=== PATIENT | male | born 1950 | race Caucasian/White ===

== ENCOUNTER 2019-10-24 08:10 | Outpatient (CLI) | payer BC, SELFPAY ==
[2019-10-24 13:54] LABS: Hematocrit 46.5 % (42.0-52.0); Hemoglobin 15.2 g/dL (14.0-18.0)
[2019-10-24 14:26] LABS: Iron 153 ug/dL (49-181)
[2019-10-24 14:39] LABS: Percent Iron Saturation 48 % (20-50)
[2019-10-26 04:41] LABS: Adrenocorticotropic Hormone 13 pg/mL (6-50)
[2019-10-26 12:48] LABS: FSH 6.6 mIU/mL (1.6-8.0); LH 4.5 mIU/mL (1.6-15.2)
[2019-10-27 13:01] LABS: Testosterone Free 32.2 pg/mL (35.0-155.0); Testosterone Total 204 ng/dL (250-1100)
== END 2019-10-24 08:11 | disposition home or self-care (01) ==
LOC: ANHWCLAB 08:15
PROVIDERS: PCP Family Medicine Adolescent Medicine; Referring Provider Internal Medicine Endocrinology, Diabetes & Metabolism; Visit Provider Internal Medicine Endocrinology, Diabetes & Metabolism
DX: E29.1 Testicular hypofunction (principal)
CPT/HCPCS: 36415; 82024; 82533; 82728; 83001; 83002; 83540; 83550; 84402; 84403; 84443; 85014; 85018

== ENCOUNTER → 2019-11-14 15:15 | Outpatient (REF) | payer BC, SELFPAY | LOC: ANHLAB 15:15 | PROVIDERS: PCP Family Medicine; Visit Provider Nurse Practitioner Family | DX: L72.0 Epidermal cyst (principal) | CPT/HCPCS: 88304 ==

== ENCOUNTER 2019-12-10 08:22 | Outpatient (CLI) | payer BC, SELFPAY ==
[2019-12-10 13:22] LABS: Hematocrit 50.4 % (42.0-52.0); Hemoglobin 16.1 g/dL (14.0-18.0)
[2019-12-10 13:32] LABS: Alanine Aminotransferase 38 U/L (4-50); Albumin Level 4.9 g/dL (3.5-5.1); Alkaline Phosphatase 86 U/L (38-126); Aspartate Amino Transferase 35 U/L (17-59); Bilirubin,Total 0.5 mg/dL (0.2-1.3); Blood Urea Nitrogen 25 mg/dL (9-20); Calcium 9.5 mg/dL (8.4-10.2); Carbon Dioxide 23 mmol/L (22-30); Chloride 104 mmol/L (98-107); Estimated Glomerular Filt Rate > 60; Glucose 87 mg/dL (75-110); Potassium 3.9 mmol/L (3.4-5.0); Sodium 141 mmol/L (137-145)
[2019-12-10 14:02] LABS: Prostate Specific Antigen 3.1 ng/mL (< OR = 4.0)
[2019-12-14 11:45] LABS: Testosterone Free 45.6 pg/mL (35.0-155.0); Testosterone Total 268 ng/dL (250-1100)
== END 2019-12-10 08:23 | disposition home or self-care (01) ==
LOC: ANHWCLAB 08:25
PROVIDERS: PCP Family Medicine; Visit Provider Internal Medicine Endocrinology, Diabetes & Metabolism
DX: E83.19 Other disorders of iron metabolism (principal); E29.1 Testicular hypofunction
CPT/HCPCS: 36415; 80053; 84153; 84402; 84403; 85014; 85018; G0103

== ENCOUNTER 2019-12-28 09:47 | Outpatient (CLI) | payer BC, SELFPAY ==
[2019-12-28 10:08] LABS: Basophils Absolute Auto 0.1 K/mm3 (0.0-0.1); Basophils Percent Auto 0.8 % (0.2-1.2); Eosinophils Absolute Auto 0.5 K/mm3 (0-0.3); Hematocrit 48.3 % (42.0-52.0); Hemoglobin 15.5 g/dL (14.0-18.0); Immature Granulocyte Absolute 0.02 K/mm3 (0.00-0.031); Immature Granulocyte Percent A 0.3 % (0-0.5); Lymphocytes Absolute Auto 1.64 K/mm3 (0.9-3.2); Lymphocytes Percent Auto 21.6 % (18.3-44.2); Mean Corpuscular HGB Conc 32.1 g/dl (32-36); Mean Corpuscular Hemoglobin 33.2 pg (26-34); Mean Corpuscular Volume 103.4 fl (80-100); Mean Platelet Volume 10.5 fl (7.4-10.4); Monocytes Absolute Auto 0.9 K/mm3 (0.1-0.6); Monocytes Percent Auto 11.7 % (2.6-8.5); Neutrophils Absolute Auto 4.5 K/mm3 (1.3-6.7); Neutrophils Percent Auto 58.6 % (45.5-73.1); Platelet Count Result 182 k/mm3 (150-375); Red Blood Count 4.67 M/mm3 (4.6-6.20); Red Cell Distribution Width 11.9 % (11.5-14.5); White Blood Count 7.6 K/mm3 (4.5-10.0)
[2019-12-28 13:07] LABS: Alanine Aminotransferase 26 U/L (4-50); Albumin Level 4.4 g/dL (3.5-5.1); Alkaline Phosphatase 84 U/L (38-126); Aspartate Amino Transferase 33 U/L (17-59); Bilirubin,Total 0.5 mg/dL (0.2-1.3); Blood Urea Nitrogen 19 mg/dL (9-20); Calcium 9.6 mg/dL (8.4-10.2); Carbon Dioxide 25 mmol/L (22-30); Chloride 105 mmol/L (98-107); Estimated Glomerular Filt Rate > 60; Glucose 98 mg/dL (75-110); Potassium 4.6 mmol/L (3.4-5.0); Sodium 138 mmol/L (137-145)
[2019-12-28 16:57] LABS: Iron 55 ug/dL (49-181)
[2019-12-28 17:08] LABS: Percent Iron Saturation 17 % (20-50)
== END 2019-12-28 09:48 | disposition home or self-care (01) ==
LOC: ANHLAB 09:49
PROVIDERS: PCP Family Medicine; Visit Provider Internal Medicine Hematology & Oncology
DX: E83.19 Other disorders of iron metabolism (principal)
CPT/HCPCS: 36415; 80053; 81256; 82728; 83540; 83550; 85025

== ENCOUNTER 2021-10-07 14:56 | Outpatient (CLI) | payer BC, SELFPAY ==
[2021-10-07 15:09] LABS: Hematocrit 52.2 % (42.0-52.0); Hemoglobin 16.8 g/dL (14.0-18.0); Mean Corpuscular HGB Conc 32.2 g/dl (32-36); Mean Corpuscular Hemoglobin 32.7 pg (26-34); Mean Corpuscular Volume 101.6 fl (80-100); Mean Platelet Volume 10.6 fl (7.4-10.4); Platelet Count Result 181 k/mm3 (150-375); Red Blood Count 5.14 M/mm3 (4.6-6.20); Red Cell Distribution Width 12.4 % (11.5-14.5); White Blood Count 6.7 K/mm3 (4.5-10.0)
[2021-10-07 16:09] LABS: Iron 74 ug/dL (49-181)
[2021-10-07 16:19] LABS: Percent Iron Saturation 23 % (20-50)
== END 2021-10-07 14:57 | disposition home or self-care (01) ==
PROVIDERS: PCP Family Medicine; Visit Provider Internal Medicine Hematology & Oncology
DX: E83.19 Other disorders of iron metabolism (principal)
CPT/HCPCS: 36415; 82728; 83540; 83550; 85027

== ENCOUNTER 2022-05-18 15:16 | Outpatient (CLI) | payer BC, SELFPAY ==
[2022-05-18 15:38] LABS: Basophils Absolute Auto 0.1 K/mm3 (0.0-0.1); Basophils Percent Auto 0.8 % (0.2-1.2); Eosinophils Absolute Auto 0.4 K/mm3 (0-0.3); Eosinophils Percent Auto 6.3 % (0-4.4); Hematocrit 55.7 % (42.0-52.0); Hemoglobin 18.3 g/dL (14.0-18.0); Immature Granulocyte Absolute 0.02 K/mm3 (0.00-0.031); Immature Granulocyte Percent A 0.3 % (0-0.5); Lymphocytes Absolute Auto 1.69 K/mm3 (0.9-3.2); Mean Corpuscular HGB Conc 32.9 g/dl (32-36); Mean Corpuscular Hemoglobin 31.9 pg (26-34); Mean Corpuscular Volume 97.2 fl (80-100); Mean Platelet Volume 10.6 fl (7.4-10.4); Monocytes Absolute Auto 0.8 K/mm3 (0.1-0.6); Monocytes Percent Auto 12.5 % (2.6-8.5); Neutrophils Absolute Auto 3.5 K/mm3 (1.3-6.7); Neutrophils Percent Auto 54.1 % (45.5-73.1); Platelet Count Result 154 k/mm3 (150-375); Red Blood Count 5.73 M/mm3 (4.6-6.20); White Blood Count 6.5 K/mm3 (4.5-10.0)
[2022-05-18 17:03] LABS: Prostate Specific Antigen 4.4 ng/mL (< OR = 4.0)
[2022-05-21 10:52] LABS: Testosterone Free 120.1 pg/mL (46.0-224.0); Testosterone Total 569 ng/dL (250-1100)
== END 2022-05-18 15:17 | disposition home or self-care (01) ==
LOC: ANHLAB 15:17
PROVIDERS: Nurse Practitioner Family; PCP Family Medicine; Referring Provider Internal Medicine Endocrinology, Diabetes & Metabolism; Visit Provider Internal Medicine Hematology & Oncology
DX: Z12.5 Encounter for screening for malignant neoplasm of prostate (principal); E29.1 Testicular hypofunction; D75.1 Secondary polycythemia; E34.9 Endocrine disorder, unspecified
CPT/HCPCS: 36415; 84153; 84402; 84403; 85025; G0103

== ENCOUNTER 2022-09-01 08:19 | Outpatient (CLI) | payer BC, SELFPAY ==
[2022-09-01 11:45] LABS: Prostate Specific Antigen 3.7 ng/mL (< OR = 4.0)
== END 2022-09-01 08:20 | disposition home or self-care (01) ==
LOC: ANHLAB 08:21
PROVIDERS: PCP Family Medicine; Visit Provider Physician Assistant Medical
DX: R97.20 Elevated prostate specific antigen [PSA] (principal)
CPT/HCPCS: 36415; 84153

== ENCOUNTER 2022-09-28 09:00 | Outpatient (NON) | payer BC, SELFPAY | END 2022-09-28 09:01 | disposition home or self-care (01) | PROVIDERS: PCP Family Medicine; Visit Provider Nurse Practitioner | DX: C44.719 Basal cell carcinoma of skin of left lower limb, including hip (principal) | CPT/HCPCS: 88305 ==

== ENCOUNTER 2022-11-08 13:11 | Outpatient (NON) | payer BC, SELFPAY | END 2022-11-08 13:12 | disposition home or self-care (01) | PROVIDERS: PCP Family Medicine; Visit Provider Nurse Practitioner | DX: C44.719 Basal cell carcinoma of skin of left lower limb, including hip (principal) | CPT/HCPCS: 88305; 88331 ==

== ENCOUNTER 2022-11-15 15:21 | Outpatient (CLI) | payer BC, SELFPAY ==
[2022-11-15 15:43] LABS: Basophils Absolute Auto 0.1 K/mm3 (0.0-0.1); Eosinophils Absolute Auto 0.4 K/mm3 (0-0.3); Eosinophils Percent Auto 6.1 % (0-4.4); Hematocrit 50.6 % (42.0-52.0); Hemoglobin 16.8 g/dL (14.0-18.0); Immature Granulocyte Absolute 0.02 K/mm3 (0.00-0.031); Immature Granulocyte Percent A 0.3 % (0-0.5); Lymphocytes Absolute Auto 1.58 K/mm3 (0.9-3.2); Lymphocytes Percent Auto 22.6 % (18.3-44.2); Mean Corpuscular HGB Conc 33.2 g/dl (32-36); Mean Corpuscular Hemoglobin 33.1 pg (26-34); Mean Corpuscular Volume 99.6 fl (80-100); Mean Platelet Volume 10.5 fl (7.4-10.4); Monocytes Absolute Auto 0.8 K/mm3 (0.1-0.6); Monocytes Percent Auto 11.1 % (2.6-8.5); Neutrophils Absolute Auto 4.1 K/mm3 (1.3-6.7); Neutrophils Percent Auto 58.9 % (45.5-73.1); Platelet Count Result 184 k/mm3 (150-375); Red Blood Count 5.08 M/mm3 (4.6-6.20); Red Cell Distribution Width 12.1 % (11.5-14.5)
[2022-11-29 12:05] LABS: Testosterone Free 32.1 pg/mL (6.0-73.0); Testosterone Total 170 ng/dL (250-1100)
== END 2022-11-15 15:22 | disposition home or self-care (01) ==
LOC: ANHLAB 15:25
PROVIDERS: Internal Medicine Endocrinology, Diabetes & Metabolism; PCP Family Medicine; Visit Provider Internal Medicine Hematology & Oncology
DX: E29.1 Testicular hypofunction (principal)
CPT/HCPCS: 36415; 84402; 84403; 85025

== ENCOUNTER 2023-03-11 08:03 | Outpatient (CLI) | payer BC, SELFPAY ==
[2023-03-11 08:21] LABS: Hematocrit 57.1 % (42.0-52.0); Hemoglobin 19.1 g/dL (14.0-18.0); Mean Corpuscular HGB Conc 33.5 g/dl (32-36); Mean Corpuscular Hemoglobin 32.9 pg (26-34); Mean Corpuscular Volume 98.4 fl (80-100); Mean Platelet Volume 10.4 fl (7.4-10.4); Platelet Count Result 173 k/mm3 (150-375); Red Cell Distribution Width 12.3 % (11.5-14.5); White Blood Count 5.8 K/mm3 (4.5-10.0)
[2023-03-11 08:53] LABS: Alanine Aminotransferase 48 U/L (6-50); Albumin Level 4.7 g/dL (3.5-5.1); Alkaline Phosphatase 63 U/L (38-126); Anion Gap 7 mmol/L (8-16); Aspartate Amino Transferase 37 U/L (17-59); Bilirubin,Total 0.9 mg/dL (0.2-1.3); Blood Urea Nitrogen 21 mg/dL (9-20); Calcium 9.5 mg/dL (8.4-10.2); Carbon Dioxide 31 mmol/L (22-30); Chloride 102 mmol/L (98-107); Estimated Glomerular Filt Rate > 60; Glucose 97 mg/dL (65-110); Potassium 4.7 mmol/L (3.4-5.0); Sodium 140 mmol/L (137-145)
[2023-03-11 11:21] LABS: Iron 175 ug/dL (49-181)
[2023-03-11 11:31] LABS: Percent Iron Saturation 45 % (20-50)
== END 2023-03-11 08:04 | disposition home or self-care (01) ==
LOC: ANHLAB 08:05
PROVIDERS: PCP Family Medicine; Visit Provider Internal Medicine Hematology & Oncology
DX: E83.19 Other disorders of iron metabolism (principal)
CPT/HCPCS: 36415; 80053; 82728; 83540; 83550; 85027

== ENCOUNTER 2023-05-23 15:14 | Outpatient (CLI) | payer BC, SELFPAY ==
[2023-05-23 15:33] LABS: Basophils Absolute Auto 0.1 K/mm3 (0.0-0.1); Eosinophils Absolute Auto 0.5 K/mm3 (0-0.3); Eosinophils Percent Auto 7.8 % (0-4.4); Hematocrit 55.1 % (42.0-52.0); Hemoglobin 17.9 g/dL (14.0-18.0); Immature Granulocyte Absolute 0.02 K/mm3 (0.00-0.031); Immature Granulocyte Percent A 0.3 % (0-0.5); Lymphocytes Absolute Auto 1.66 K/mm3 (0.9-3.2); Lymphocytes Percent Auto 26.8 % (18.3-44.2); Mean Corpuscular HGB Conc 32.5 g/dl (32-36); Mean Corpuscular Hemoglobin 32.4 pg (26-34); Mean Corpuscular Volume 99.6 fl (80-100); Mean Platelet Volume 10.8 fl (7.4-10.4); Monocytes Absolute Auto 0.7 K/mm3 (0.1-0.6); Monocytes Percent Auto 11.1 % (2.6-8.5); Neutrophils Absolute Auto 3.3 K/mm3 (1.3-6.7); Platelet Count Result 156 k/mm3 (150-375); Red Blood Count 5.53 M/mm3 (4.6-6.20); White Blood Count 6.2 K/mm3 (4.5-10.0)
[2023-05-23 16:49] LABS: Alanine Aminotransferase 50 U/L (6-50); Albumin Level 4.2 g/dL (3.5-5.1); Alkaline Phosphatase 78 U/L (38-126); Anion Gap 8 mmol/L (8-16); Aspartate Amino Transferase 36 U/L (17-59); Bilirubin,Total 0.5 mg/dL (0.2-1.3); Blood Urea Nitrogen 23 mg/dL (9-20); Calcium 9.1 mg/dL (8.4-10.2); Carbon Dioxide 30 mmol/L (22-30); Chloride 101 mmol/L (98-107); Estimated Glomerular Filt Rate > 60; Glucose 125 mg/dL (65-110); Sodium 139 mmol/L (137-145)
[2023-05-23 16:50] LABS: Iron 70 ug/dL (49-181)
[2023-05-23 16:58] LABS: Percent Iron Saturation 19 % (20-50)
== END 2023-05-23 15:15 | disposition home or self-care (01) ==
LOC: ANHLAB 15:16
PROVIDERS: PCP Family Medicine; Visit Provider Internal Medicine Hematology & Oncology
DX: E83.19 Other disorders of iron metabolism (principal)
CPT/HCPCS: 36415; 80053; 82728; 83540; 83550; 85025

== ENCOUNTER 2023-11-28 16:08 | Outpatient (CLI) | payer BC, SELFPAY ==
--- NOTE | ~2023-11-28 | XR_ITS ---
XR chest 2V DATE: 11/28/2023 16:32 INDICATION: Other specified symptoms and signs involving the chest TECHNIQUE: 2 views COMPARISON: November 01, 2015 2 view chest FINDINGS: Normal heart size. No hilar or mediastinal enlargement. No pulmonary infiltrate or consolid ation, pleural effusion or pulmonary vascular congestion or pneumothorax. Dextro scoliosis and prominent degenerative spurring of the thoracic spine. IMPRESSION: No active cardiopulmonary disease Dextro scoliosis and prominent degenerative spurring of thoracic spine Reviewed, dictated and finalized at location B.
== END 2023-11-28 16:09 ==
LOC: MICIMG 16:09
PROVIDERS: PCP Family Medicine; Visit Provider Family Medicine
DX: R09.89 Other specified symptoms and signs involving the circulatory and respiratory systems (principal); M41.9 Scoliosis, unspecified
CPT/HCPCS: 71046

== ENCOUNTER 2024-01-20 12:35 | Outpatient (CLI) | payer BC, SELFPAY ==
--- NOTE | 2024-01-23 17:04 | WPDHOLTEREM ---
Holter/Event Monitor Holter/Event Monitor Date of procedure: 01/20/24 Holter/Event Procedure: 48 Hr Holter Monitor Indications: Bradycardia Conclusion: 1. 48 hour holter monitor on 01/20/24. 2. Underlying rhythm is sinus rhythm. HR range 48-98 bpm; average 67 bpm. HR at 48 bpm was at 03:42. 3. There are 66 premature supraventricular complexes and 1 supraventricular couplet. No supraventricular tachycardia. 4. There are 10 premature ventricular complexes. No ventricular tachycardia. 5. No sinoatrial or atrioventricular blocks. No significant pauses greater than 2 seconds. 6. No symptoms available for correlation.
== END 2024-01-20 12:36 | disposition home or self-care (01) ==
LOC: ANHCARD 12:36
PROVIDERS: PCP Family Medicine; Visit Provider Family Medicine
DX: R00.1 Bradycardia, unspecified (principal)
CPT/HCPCS: 93225; 93226

== ENCOUNTER 2024-02-02 15:40 | Outpatient (CLI) | payer BC, SELFPAY ==
[2024-02-02 18:28] LABS: Prostate Specific Antigen 5.4 ng/mL (< OR = 4.0)
[2024-02-06 15:58] LABS: Testosterone Total 345 ng/dL (250-1100)
[2024-02-06 16:09] LABS: Testosterone Free 78.1 pg/mL (6.0-73.0)
== END 2024-02-02 15:41 | disposition home or self-care (01) ==
LOC: ANHLAB 15:42
PROVIDERS: PCP Family Medicine; Visit Provider Internal Medicine Endocrinology, Diabetes & Metabolism
DX: E29.1 Testicular hypofunction (principal); R97.20 Elevated prostate specific antigen [PSA]; D75.1 Secondary polycythemia
CPT/HCPCS: 36415; 84153; 84402; 84403; G0103

== ENCOUNTER 2024-08-02 09:21 | Outpatient (CLI) | payer OTHER, SELFPAY ==
[2024-08-06 18:43] LABS: Testosterone Total 213 ng/dL (250-1100)
== END 2024-08-02 09:22 | disposition home or self-care (01) ==
LOC: ANHLAB 09:22
PROVIDERS: Internal Medicine Endocrinology, Diabetes & Metabolism; PCP Family Medicine; Visit Provider Internal Medicine Hematology & Oncology
DX: E29.1 Testicular hypofunction (principal)
CPT/HCPCS: 36415; 84403

== ENCOUNTER 2025-01-22 09:00 | Outpatient (CLI) | payer OTHER, SELFPAY ==
--- OUTSIDE RECORDS SUMMARY | 2025-01-22 09:09 | XMS_ITS | Clinical Summary ---
Author Organization [facility] Address [address] [place] [address] Care Team Providers Care Patent Paralegal Name Role Phone Felipe Bae MD Primary Care Provider [phone] Allergies Active Allergy Reactions Criticality Noted Date Comments Penicillins Swelling High 12/13/2019 Medications simvastatin (ZOCOR) 20 mg tablet Take 20 mg by mouth daily with supper. Active aspirin (ECOTRIN EC) 81 mg Tablet, Delayed Release (E.C.) Take 81 mg by mouth daily. Active ped vitamins acd fl-iron (TRI--TANNA 0.25 w/FE) 0.25-10 mg/mL Drops Take 1 mL by mouth daily. Active multivitamin (DAILY-ANSELMO) tablet Take 1 Tablet by mouth daily. Active ascorbic acid, vitamin C, (VITAMIN C) 500 mg tablet Take 500 mg by mouth daily. Active calcium-vitamin D3-vitamin K (VIACTIV) 500-100-40 mg-unit-mcg Tablet, Chewable Take by mouth. Activ e polyvinyl alcohol-povidon ,PF, (REFRESH CLASSIC) 1.4-0.6 % solution 1 Drop PRN for Discomfort. Active lisinopriL (PRINIVIL) 20 mg tablet Take 20 mg by mouth daily. Active carvediloL (COREG) 12.5 mg tablet Take 12.5 mg by mouth 2 times daily with meals. 4 Active hydroCHLOROthia zide 25 mg tablet Take 1 Tablet by mouth daily. 4 Active Jatenzo 158 mg Capsule TAKE 1 CAPSULE DAILY IN THEMORNING AND IN THE EVENING;MUST ADMINISTER WITH A MEAL/FOOD Active Active Problems Problem Noted Date Diagnosed Date Erythrocytosis 10/07/2021 Iron overload 12/13/2019 Encounters Date Type Department Care Team Description 10/29/2024 Orders Only [facility] Oncology and Hematology [facility] [address] [place] [address] Deng Ricardo MD Erythrocytosis from Last 3 Months Family History Relation Name Status Comments Brother 1 Alive Brother 2 Alive Brother 3 Alive Daughter 1 Alive Daughter 2 Alive Father Mother Sister Alive Social History Tobacco Use Types Packs/Day Years Used Date Smoking Tobacco: Former Cigarettes 2 10 0 12/12/1974 - 12/12/1984 Smokeless Tobacco: Current Chew Alcohol Use Standard Drinks/Week Comments Yes 0 (1 standard drink = 0.6 oz pur e alcohol) OCCASIONLLY Sex and Gender Information Value Date Recorded Sex Assigned at Not on file Legal Sex Male 10:26 PM CDT Gender Identity Not on file Sexual Orientation Not on file Last Filed Vital Signs Vital Sign Reading Time Taken Comments Blood Pressure 167/83 10/01/2024 4:00 PM [employer]MENT[employer] DIRECTOR Pulse 68 10/01/2024 3:56 PM ELEMENTARY SCHOOL DIRECTOR Temperature 37 C (98.6 F) 10/01/2024 3:56 PM ELEMENTARY SCHOOL DIRECTOR Respiratory Rate 15 10/01/2024 3:56 PM ELEMENTARY SCHOOL DIRECTOR Oxygen Saturation 96% 10/01/2024 3:56 PM ELEMENTARY SCHOOL DIRECTOR Inhaled Oxygen Concentration - - Weight 91.1 kg (200 lb 12.8 oz) 10/01/2024 3:56 PM ELEMENTARY SCHOOL DIRECTOR Height 172.7 cm (5' 8 ) 05/18/2022 3:47 PM CDT Body Mass Index 30.53 05/18/2022 3:47 PM CDT Plan of Treatment Upcoming Encounters Date Type Department Care Team (Late st Contact Info) Description 01/28/2025 3:45 PM CDT Office Visit [facility] Oncology and Hematology - [place] [address] [place] [address] Deng Ricardo MD [address] [place] [address] Health Maintenance Due Date Last Done Comments DTAP/TDAP/TD VACCINES (1 - Tdap) 1971 COLORECTAL SCREENING 1997 Colorectal Cancer Screening 1997 FIT-DNA Q 3 years 1997 FIT/FOBT Q 1 year 1997 Flex Sig/CT Colonography Q 5 years 1997 PNEUMOCOCCAL VACCINE 50+ YEARS (1 of 1 - PCV) 09/27/19 03 ZOSTER VACCINE (1 of 2) 2002 Abdominal Aortic Aneurysm (AAA) Screening 2017 INFLUENZA VACCINE (#1) 2024 Preventative Visit- Commercial 09/12/2024 RSV VACCINE (60+ or ) (1 - 1-dose 75+ series) 2027 Insurance MEDICARE PART A HOSPITAL ONLY [employer] MANAGED CHOICE Care Teams Patent Paralegal Relationship Specialty Start Date End Date Felipe Bae MD [address] [place] [address] PCP - General Family Practice 11/06/19
[2025-01-22 09:29] LABS: Hematocrit 56.5 % (42.0-52.0); Hemoglobin 17.7 g/dL (14.0-18.0); Mean Corpuscular HGB Conc 31.3 g/dl (32-36); Mean Corpuscular Hemoglobin 29.2 pg (26-34); Mean Corpuscular Volume 93.1 fl (80-100); Mean Platelet Volume 10.5 fl (7.4-10.4); Platelet Count Result 189 k/mm3 (150-375); Red Blood Count 6.07 M/mm3 (4.6-6.20); Red Cell Distribution Width 15.4 % (11.5-14.5); White Blood Count 6.9 K/mm3 (4.5-10.0)
[2025-01-22 12:14] LABS: Alanine Aminotransferase 51 U/L (6-50); Albumin Level 4.6 g/dL (3.5-5.1); Alkaline Phosphatase 63 U/L (38-126); Anion Gap 7 mmol/L (4-12); Aspartate Amino Transferase 59 U/L (17-59); Bilirubin,Total 0.7 mg/dL (0.2-1.3); Blood Urea Nitrogen 17 mg/dL (9-20); Calcium 9.2 mg/dL (8.4-10.2); Carbon Dioxide 31 mmol/L (22-30); Chloride 101 mmol/L (98-107); Estimated Glomerular Filt Rate > 60; Glucose 85 mg/dL (65-110); Potassium 4.8 mmol/L (3.4-5.0); Sodium 139 mmol/L (137-145)
[2025-01-22 12:17] LABS: Iron 145 ug/dL (49-181)
[2025-01-22 12:31] LABS: Percent Iron Saturation 32 % (20-50)
[2025-01-22 12:45] LABS: Prostate Specific Antigen 9.2 ng/mL (< OR = 4.0)
== END 2025-01-22 09:01 | disposition home or self-care (01) ==
LOC: ANHLAB 09:01
PROVIDERS: PCP Internal Medicine Endocrinology, Diabetes & Metabolism; Visit Provider Internal Medicine Hematology & Oncology
DX: E29.1 Testicular hypofunction (principal); E34.9 Endocrine disorder, unspecified; R97.20 Elevated prostate specific antigen [PSA]; D75.1 Secondary polycythemia; Z12.5 Encounter for screening for malignant neoplasm of prostate
CPT/HCPCS: 36415; 80053; 82728; 83540; 83550; 84153; 84402; 84403; 85027; G0103

== ENCOUNTER 2025-04-24 09:36 | Outpatient (CLI) | payer OTHER, SELFPAY ==
--- OUTSIDE RECORDS SUMMARY | 2025-04-24 09:42 | XMS_ITS | Clinical Summary ---
Author Organization [facility] Gary [facility]ina [facility] Address [address] [facility] [place] [address] Care Team Providers Care Antique Collector Name Role Phone Felipe Bae MD Primary Care Provider [phone] Allergies Active Allergy Reactions Criticality Noted Date [...] Encounters Date Type Department Care Team Description 03/11/2025 Orders Only [facility] Oncology and Hematology - [place] [facility] [address] [place] [address] Deng Ricardo MD 01/29/2025 Orders Only [facility] Oncology and Hematology - [place] [facility] [address] Deng Ricardo MD 01/28/2025 3:45 PM CDT Office Visit [facility] Oncology and Hematology - [place] [address] [address] [place] [address] Deng Ricardo MD Erythrocytosis (Primary Dx); Testosterone deficiency; Elevated PSA; Iron overload 01/24/2025 Orders Only [facility] Oncology and Hematology - [place] [facility] [address] [place] [phone] Deng Ricardo MD 01/22/2025 Orders Only [facility] Oncology and Hematology - [place] [facility] [address] [place] [id number] Deng Ricardo MD from Last 3 Months Family History Relation Name Status Comments Brother 1 Alive Brother 2 Alive Brother 3 Alive Daughter 1 Alive Daughter 2 Alive Father Mother Sister Alive Social History Tobacco Use Types Packs/Day Years Used Date Smoking Tobacco: Former Cigarettes 2 10 0 12/12/1974 - 12/12/1984 Smokeless Tobacco: Current Chew Tobacco Cessation:Ready to Q uit: Not Asked; Counseling Given: Not Answered Alcohol Use Standard Drinks/Week Comments Yes 0 (1 standard drink = 0.6 oz pur e alcohol) OCCASIONLLY Sex and Gender Information Value Date Recorded Sex Assigned at Not on file Legal Sex Male 10:26 PM CDT Gender Identity Not on file Sexual Orientation Not on file Last Filed Vital Signs Vital Sign Reading Time Taken Comments Blood Pressure 140/98 01/28/2025 3:47 PM CDT Took manually Pulse 74 01/28/2025 3:40 PM CDT Temperature 36.4 C (97.6 F) 01/28/2025 3:40 PM CDT Respiratory Rate 15 01/28/2025 3:40 PM CDT Oxygen Saturation 96% 01/28/2025 3:4 0 PM CDT Inhaled Oxygen Concentration - - Weight 89.6 kg (197 lb 9.6 oz) 01/28/2025 3:40 PM CDT Height 172.7 cm (5' 8) 05/18/2022 3:47 PM CDT Body Mass Index 30.04 05/18/2022 3:47 PM CDT Plan of Treatment Upcoming Encounters Date Type Department Care Team (Late st Contact Info) Description 04/29/2025 3:45 PM CDT Office Visit [facility] Oncology and Hematology [facility] [address] [facility] [[email or web address] [address] [place] [address] Deng Ricardo MD [address] [facility] [address] [place] [address] Health Maintenance Due Date Last Done Comments DTAP/TDAP/TD VACCINES (1 - Tdap) 1971 COLORECTAL SCREENING 1997 Colorectal Cancer Screening 1997 FIT-DNA Q 3 years 1997 FIT/FOBT Q 1 year 1997 Flex Sig/CT Colonography Q 5 years 1997 PNEUMOCOCCAL VACCINE 50+ YEARS (1 of 1 - PCV) 09/27/19 03 ZOSTER VACCINE (1 of 2) 2002 Abdominal Aortic Aneurysm (AAA) Screening 2017 Preventative Visit- Commercial 09/12/2024 INFLUENZA VACCINE (#1) 2025 RSV VACCINE (60+ or ) (1 - 1-dose 75+ series) 2027 Procedures Procedure Name Priority Date/Time Associated Diagnosis Comments CBC WITH DIFFERENTIAL Routine 02/28/2025 3:50 PM CDT CBC WITH DIFFERENTIAL Routine 01/22/2025 2:51 PM CDT IRON, TIBC, AND PERCENT SATURATION Routine 01/22/2025 10:06 AM CDT TESTOSTERONE FREE Routine 01/22/2025 9:1 1 AM CDT from Last 3 Months Results * CBC WITH DIFFERENTIAL (02/28/2025 3:50 PM CDT) Only the most recent of2 resultswithin the time period is included. Blood us Deng Ricardo MD HEMATOLOGY ORDERABLES Final Res ult * IRON, TIBC, AND PERCENT SATURATION (01/22/2025 10:06 AM CDT) Blood Deng Ricardo MD CHEMISTRY ORDERABLES Final Resu lt * TESTOSTERONE FREE (01/22/2025 9:11 AM CDT) Blood Deng Ricardo MD CHEMISTRY ORDERABLES Final Resu lt from Last 3 Months Insurance MEDICARE PART A HOSPITAL ONLY [employer] MANAGED CHOICE Care Teams Antique Collector Relationship Specialty Start Date End Date Felipe Bae MD [address] [place] [address] PCP - General Family Practice 11/06/19
[2025-04-24 09:50] LABS: Hematocrit 51.1 % (42.0-52.0); Hemoglobin 16.9 g/dL (14.0-18.0); Mean Corpuscular HGB Conc 33.1 g/dl (32-36); Mean Corpuscular Hemoglobin 32.3 pg (26-34); Mean Corpuscular Volume 97.7 fl (80-100); Platelet Count Result 202 k/mm3 (150-375); Red Blood Count 5.23 M/mm3 (4.6-6.20); White Blood Count 5.9 K/mm3 (4.5-10.0)
[2025-04-24 10:43] LABS: Iron 133 ug/dL (49-181)
[2025-04-24 10:53] LABS: Percent Iron Saturation 39 % (20-50)
[2025-04-24 11:12] LABS: Prostate Specific Antigen 7.4 ng/mL (< OR = 4.0)
[2025-04-24 11:25] LABS: Ferritin 61.70 ng/mL (11.1-264)
[2025-04-29 16:08] LABS: Free Testosterone (Direct) 3.9 pg/mL (6.6-18.1)
== END 2025-04-24 09:37 | disposition home or self-care (01) ==
LOC: ANHLAB 09:37
PROVIDERS: PCP Family Medicine; Visit Provider Internal Medicine Hematology & Oncology
DX: E83.19 Other disorders of iron metabolism (principal); E34.9 Endocrine disorder, unspecified; R97.20 Elevated prostate specific antigen [PSA]
CPT/HCPCS: 36415; 82728; 83540; 83550; 84153; 84402; 84403; 85027

== ENCOUNTER 2025-04-30 15:59 | Outpatient (CLI) | payer OTHER, SELFPAY ==
--- NOTE | ~2025-04-30 | CT_ITS ---
EXAMINATION: CT sinus wo con DATE: 04/30/2025 16:13 INDICATION: Acute sinusitis TECHNIQUE: Computed tomography (CT) of the paranasal sinuses was performed without intravenous contrast. The dose-length product was 282.66 mGy-cm. Automated exposure control and iterative reconstruction technique were employed. COMPARISON: CT dated 10/27/2012 FINDINGS: There is mucosal thickening with air-fluid level in the left maxillary sinus. Mild mucosal thickening right maxillary sinus. There are right-sided dental caries. No mucoperiosteal reaction. Rightward nasal septal deviation. There is partial opacification of the ostiomeatal units with soft tissue. Mastoids are pneumatized. IMPRESSION: 1. Mild sinus disease primarily involving the maxillary sinuses. Reviewed, dictated and finalized at location A.
== END 2025-04-30 16:00 | disposition home or self-care (01) ==
LOC: MICIMG 16:00
PROVIDERS: PCP Family Medicine; Visit Provider Otolaryngology
DX: J01.90 Acute sinusitis, unspecified (principal)
CPT/HCPCS: 70486

== ENCOUNTER 2025-05-14 02:58 | Observation (INO) | payer OTHER, SELFPAY ==
--- NOTE | ~2025-05-14 | CT_ITS ---
EXAMINATION: CT abdomen pelvis w con DATE: 05/14/2025 04:57 INDICATION: Groin mass TECHNIQUE: Computed tomography (CT) of the abdomen and pelvis was performed with 100 mL Omnipaque-350 intravenous contrast. Automated exposure control and iterative reconstruction technique were employed. The dose-length product was 575.45 mGy-cm. COMPARISON: None FINDINGS: Mild bibasilar atelectasis. Heart size is normal. No pericardial or pleural effusion. Small sliding-type hiatal hernia. Liver, gallbladder, spleen, pancreas and bilateral adrenal glands are normal. Bilateral renal cysts the largest on the right measuring 6.0 cm. Bowels including the appendix are normal. Bladder is normal. Prostatomegaly measuring 5.8 x 4.9 cm. Pathologically enlarged lymphadenopathy beginning at the right groin with largest lymph node measuring 6.9 x 5.2 cm extending cephalad through the right iliac chain to the infrarenal aorta caval region with largest right external iliac chain lymph node measuring 6.9 x 4.0 cm. There are also a few mildly enlarged left inguinal lymph nodes. Asymmetric soft tissue swelling and subcutaneous edema at the visualized proximal right thigh as well as penile and scrotal edema which is likely secondary to the lymphadenopathy. Mild lumbar and moderate lower thoracic spondylosis with bridging osteophytes at multiple levels consistent with diffuse idiopathic skeletal hyperostosis (DISH). IMPRESSION: 1. Prominent right inguinal and retroperitoneal lymphadenopathy which could be metastatic or due to lymphoma. Recommend ultrasound guided biopsy of one of the enlarged right inguinal lymph nodes. 2. Prostatomegaly. 3. Small sliding-type hiatal hernia. Reviewed, dictated and finalized at location A.
--- NOTE | ~2025-05-14 | US_ITS ---
EXAMINATION: US biopsy lymph node DATE: 05/14/2025 11:20 INDICATION: Right inguinal lymphadenopathy TECHNIQUE: The procedure including the risks and benefits was discussed with the patient. Risks discussed included bleeding and infection. The patient understood the risks and agreed to proceed. The skin overlying the right groin was prepped and draped in usual sterile fashion. Anesthetic was administered with 1% lidocaine subcutaneously. An 14 gauge core biopsy needle was advanced under continuous ultrasound observation to the lesion of interest. 5 core biopsy specimens were obtained, 3 placed in RPMI media and 2 in formalin. The needle was removed and the entry site was cleaned and dressed. Post procedure ultrasound demonstrated no hemorrhage. FINDINGS: Ultrasound images demonstrate multiple hypoechoic masses at the right groin consistent with enlarged lymph nodes is identified on prior CT. Subsequent images demonstrate biopsy needle advanced into the largest of the masses which measures 6.4 x 5.8 x 5.4 cm. IMPRESSION: 1. Successful Ultrasound-guided biopsy of the largest 6.4 cm mass at the right groin was concerning for lymphoma or metastatic disease. Follow-up with pathology results. Reviewed, dictated and finalized at location A. IMPRESSION: 1. Successful Ultrasound-guided biopsy of the largest 6.4 cm mass at the right groin was concerning for lymphoma or metastatic disease. Follow-up with patholo gy results.
--- OUTSIDE RECORDS SUMMARY | 2025-05-14 03:01 | XMS_ITS | Clinical Summary ---
Author Organization [facility]ina [facility] Address [address] [facility] [place] [address] Care Team Providers Care Tester Compressed Gases Name Role Phone Felipe Bae MD Primary Care Provider [phone] Allergies Active Allergy Reactions Criticality Noted Date [...] Encounters Date Type Department Care Team Description 05/06/2025 Orders Only [facility] Oncology and Hematology - [place] [address] [place] [address] Deng Ricardo MD Enlarged lymph nodes (Primary Dx); Malignant melanoma of left lower extremity (CMS/HCC) 04/30/2025 Orders Only [facility] Oncology and Hematology - [place] [address] [place] [address] Deng Ricardo MD 04/29/2025 3:45 PM CDT Office Visit [facility] Oncology and Hematology - [place] [address] [place] [address] Deng Ricardo MD Erythrocytosis (Primary Dx); Testosterone deficiency; Iron overload; Lymphadenopathy, inguinal; Malignant melanoma of left lower extremity (CMS/HCC) 04/24/2025 Orders Only [facility] Oncology and Hematology - [place] [address] [place] [address] Deng Ricardo MD 03/11/2025 Orders Only [facility] Oncology and Hematology - [place] [address] [place] [address] Deng Ricardo MD from Last 3 Months [...] Sign Reading Time Taken Comments Blood Pressure 155/83 04/29/2025 3:48 PM CDT Pulse 75 04/29/2025 3:42 PM CDT Temperature 36.4 C (97.6 F) 04/29/2025 3:42 PM CDT Respiratory Rate 15 04/29/2025 3:42 PM CDT Oxygen Saturation 97% 04/29/2025 3:42 PM CDT Inhaled Oxygen Concentration - - Weight 86.9 kg (191 lb 9.6 oz) 04/29/2025 3:42 P M CDT Height 172.7 cm (5' 8) 05/18/2022 3:47 PM CDT Body Mass Index 29.13 05/18/2022 3:47 PM CDT Plan of Treatment Upcoming Encounters Date Type Department Care Team (Late st Contact Info) Description 05/28/2025 4:30 PM CDT Telephone Check Up [facility] Oncology [place] [address] [address] [place] [address] [place] [address] [place] [address] [address] [place] [address] 09/17/2025 1:00 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 Office Visit [facility] Oncology [facility] [address] [place] [address] [place] [address] [place] [address] [address] [place] [phone] Health Maintenance Due Date Last Done Comments DTAP/TDAP/TD VACCINES (1 - Tdap) 1971 COLORECTAL SCREENING 1997 Colorectal Cancer Screening 1997 FIT-DNA Q 3 years 1997 FIT/FOBT Q 1 year 1997 Flex Sig/CT Colonography Q 5 years 1997 PNEUMOCOCCAL VACCINE 50+ YEARS (1 of 1 - PCV) 09/27/19 03 ZOSTER VACCINE (1 of 2) 2002 Abdominal Aortic Aneurysm (AAA) Screening 2017 INFLUENZA VACCINE (#1) 2025 RSV VACCINE (60+ or ) (1 - 1-dose 75+ series) 2027 Procedures Procedure Name Priority Date/Time Associated Diagnosis Comments PSA Routine 04/24/2025 3:41 PM CDT CBC WITH AUTODIFFERENTIAL Routine 2024 12:38 PM CDT TESTOSTERONE FREE AND TOTAL Routine 04/12 10:23 AM CDT CBC WITH DIFFERENTIAL Routine 02/28/2025 3:50 PM CDT from Last 3 Months Results * PSA (04/24/2025 3:41 PM CDT) Blood us Deng Ricardo MD CHEMISTRY ORDERABLES Final Resu lt * CBC WITH AUTODIFFERENTIAL (04/24/2025 12:38 PM CDT) Blood us Deng Ricardo MD HEMATOLOGY ORDERABLES Final Res ult * TESTOSTERONE FREE AND TOTAL (04/24/2025 10:23 AM CDT) Blood us Deng Ricardo MD CHEMISTRY ORDERABLES Final Resu lt * CBC WITH DIFFERENTIAL (02/28/2025 3:50 PM CDT) Blood us Deng Ricardo MD HEMATOLOGY ORDERABLES Final Res ult from Last 3 Months Insurance [employer] ONLY Care Teams Tester Compressed Gases Relationship Specialty Start Date End Date Felipe Bae MD [address] [place] [address] PCP - General Family Practice 11/06/19
[2025-05-14 03:06] VITALS: BP 214/84; PULSE 66; RESP 14; TEMP 36.4; O2SAT 98
--- NOTE | 2025-05-14 03:25 | ED.GENADULT ---
HPI - General Adult General Chief complaint: Skin/Abscess/Foreign Body Stated complaint: lump in groin Time Seen by Provider: 05/14/25 03:05 History of Present Illness HPI narrative: Patient is 74-year-old gentleman presents emergency department with complaint lump in the inguinal area the patient reports about a month ago he noticed that was lump had MRI done that showed some lymphadenopathy. patient reports he is scheduled CT scan in the next by his oncologist he for the abnormal mri. the patient reports that [place] is doing a lot a walking reports more swelling in his suprapubic area reports that it has become uncomfortable and did not want to wait for the outpatient ct Related Data Home Medications ?Medication ?Instructions ?Recorded ?Confirmed ?Last Taken ?Type aspirin 81 mg tablet,delayed 81 mg PO DAILY 10/18/19 03/22/25 Unknown History release ascorbic acid (vitamin C) 500 mg 500 mg PO DAILY 01/09/24 03/22/25 Unknown History capsule,extended release cholecalciferol (vitamin D3) 50 50 mcg PO DAILY 01/09/24 03/22/25 Unknown History mcg (2,000 unit) capsule fuysxinaiqyl-zhg-cvugo acid-vit 1 tablet PO DAILY 01/09/24 03/22/25 Unknown History K-lycop 400 mcg-20 mcg-370 mcg tablet (Men's 50 Plus Daily Formula) triamcinolone acetonide 55 mcg 1 spray intranasal DAILY 01/09/24 03/22/25 Unknown History nasal spray aerosol (Nasacort) artifi.tears(hypromellose)(PF) 1.7 1 drp EACH EYE DAILY PRN Dry Eyes 06/25/24 03/22/25 Unknown History % eye drops with applicator testosterone undecanoate 158 mg 158 mg PO DAILY 02/28/25 03/22/25 Unknown History capsule (Jatenzo) Allergies Allergy/AdvReac Type Severity Reaction Status Date / Time Penicillins Allergy Intermediate Hives Verified 03/22/25 11:08 Review of Systems Review of Systems: A 10 system review of systems was completed on the patient and is negative except for what is stated in the HPI. Nursing and ancillary documentation was reviewed. [facility] Past Medical History Medical History Bradycardia Respiratory crackles at both lung bases Tonsillectomy planned Basal cell carcinoma leg Pigmented malignant lesion of skin BMI 32.0-32.9,adult Subcutaneous mass Screening for thyroid disorder Screening for prostate cancer Screening for diabetes mellitus Potassium (K) excess Elevated bilirubin Changing skin lesion Atelectasis of both lungs Acute non-recurrent maxillary sinusitis BMI 30.0-30.9,adult Family History Family History Father Dementia Mother Diabetes mellitus Morbid obesity Rheumatoid arthritis Heart disease Hypertension Sibling Heart disease Other Family history of arthritis Family history of congestive heart failure Social History Social History Smoking packs per day: 1 Smoking cigarettes per day: 20.0 Years smoked: 15 Smoking pack-years: 15.00 Smoking status: Former smoker Second hand tobacco smoke exposure: No Smoking end date: 09/12/84 Alcohol intake: current Drinks per week: 1 Alcohol use details: beer Substance use: former Substance use type: marijuana Do You Feel Safe in your Home?: Yes Lack of Transportation: No Lack of Food: Never True Current Housing: I Have Housing Concerned About Future Housing: No Difficulty Paying Gas/Electric Bills: No Difficulty Paying for Meds: No Currently Unemployed: No Education: Associate Degree Difficulty w/ Childcare or Family Care: No Living arrangements: with family Occupation/Education: occupation Additional occupation/education comments: [employer]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 HEAD: Normocephalic, atraumatic. EYES: PERRLA and EOMI. ENT: Nares clear, no rhinorrhea or epistaxis. Mucous membranes moist. NECK: Supple. CHEST: Clear to auscultation. No respiratory distress. HEART: Regular rate and rhythm. No murmur heard. Normal peripheral pulses. ABDOMEN: Soft, nontender, nondistended, normal active bowel sounds. There is a tender mass suprapubic lower quadrant area EXTREMITIES: Normal range of motion. No edema. SKIN: Warm, dry, no rash. NEURO: No focal deficits. Alert and oriented x3. PSYCH: Normal mood and affect. Course Vital Signs Vital signs: Vital Signs Temperature 36.4 C L 05/14/25 03:06 Pulse Rate 66 05/14/25 03:06 Respiratory Rate 14 05/14/25 03:06 Blood Pressure 214/84 H 05/14/25 03:06 Pulse Oximetry 98 05/14/25 03:06 Oxygen Delivery Room Air 05/14/25 03:06 Temperature 36.4 C L 05/14/25 03:06 Pulse Rate 81 05/14/25 05:31 Respiratory Rate 17 05/14/25 05:31 Blood Pressure 195/80 H 05/14/25 05:31 Pulse Oximetry 99 05/14/25 05:31 Oxygen Delivery Room Air 05/14/25 03:06 Medical Decision Making Vital Signs Vital Signs: Vital Signs Temperature 36.4 C L 05/14/25 03:06 Pulse Rate 66 05/14/25 03:06 Respiratory Rate 14 05/14/25 03:06 Blood Pressure 214/84 H 05/14/25 03:06 Pulse Oximetry 98 05/14/25 03:06 Oxygen Delivery Room Air 05/14/25 03:06 Temperature 36.4 C L 05/14/25 03:06 Pulse Rate 81 05/14/25 05:31 Respiratory Rate 17 05/14/25 05:31 Blood Pressure 195/80 H 05/14/25 05:31 Pulse Oximetry 99 05/14/25 05:31 Oxygen Delivery Room Air 05/14/25 03:06 Lab Data 05/14/25 03:32 05/14/25 03:32 Labs: Lab Results 05/14/25 05/14/25 Range/Units 03:32 05:28 WBC 8.2 (4.5-10.0) K/mm3 RBC 5.46 (4.6-6.20) M/mm3 Hgb 17.1 (14.0-18.0) g/dL Hct 53.3 H (42.0-52.0) % MCV 97.6 (80-100) fl MCH 31.3 (26-34) pg MCHC 32.1 (32-36) g/dl RDW 13.8 (11.5-14.5) % Plt Count 179 (150-375) k/mm3 MPV 10.4 (7.4-10.4) fl Immature Gran % (Auto) 0.2 (0-0.5) % Neut % (Auto) 88.6 H (45.5-73.1) % Lymph % (Auto) 5.0 L (18.3-44.2) % [place] % (Auto) 4.9 (2.6-8.5) % Eos % (Auto) 0.7 (0-4.4) % Baso % (Auto) 0.6 (0.2-1.2) % Lymph # (Auto) 0.41 L (0.9-3.2) K/mm3 [place] # (Auto) 0.4 (0.1-0.6) K/mm3 Eos # (Auto) 0.1 (0-0.3) K/mm3 Baso # (Auto) 0.1 (0.0-0.1) K/mm3 Abs Immat Gran (auto) 0.02 (0.00-0.031) K/mm3 Absolute Neuts (auto) 7.2 H (1.3-6.7) K/mm3 Absolute Nucleated RBC 0.000 (0.0-0.012) K/mm3 Nucleated RBC % 0.0 (0.0-0.2) % Sodium 141 (137-145) mmol/L Potassium 4.8 (3.4-5.0) mmol/L Chloride 105 (98-107) mmol/L Carbon Dioxide 28 (22-30) mmol/L Anion Gap 8 (4-12) mmol/L BUN 26 H (9-20) mg/dL Creatinine 1.06 (0.7-1.3) mg/dL Estim Creat Clear Calc Not Reportable Estimated GFR > 60 (59 - ) Glucose 120 H (65-110) mg/dL Calcium 9.7 (8.4-10.2) mg/dL Total Bilirubin 0.8 (0.2-1.3) mg/dL AST 43 (17-59) U/L ALT 37 (6-50) U/L Alkaline Phosphatase 82 (38-126) U/L Total Protein 8.0 (6.3-8.2) g/dL Albumin 4.5 (3.5-5.1) g/dL Urine Color Pending Urine Appearance Pending Urine pH Pending Ur Specific [place] Pending Urine Protein Pending Urine Glucose (UA) Pending Urine Ketones Pending Ur Blood (Man) Pending Urine Nitrate Pending Urine Bilirubin Pending Urine Urobilinogen Pending Leukocyte Esterase Rfl Pending Discharge Plan Discharge Clinical Impression: Lymphadenopathy Patient Disposition: Still a Patient Condition: Stable Patient Language: American Prescriptions: No Action Jatenzo 158 mg capsule 158 mg PO DAILY Rx Instructions: must administer with a meal/food aspirin 81 mg tablet,delayed release (DR/EC) 81 mg PO DAILY Men's 50 Plus Daily Formula 400-20-370 mcg tablet 1 tablet PO DAILY ascorbic acid (vitamin C) 500 mg capsule, extended release 500 mg PO DAILY cholecalciferol (vitamin D3) 50 mcg (2,000 unit) capsule 50 mcg PO DAILY triamcinolone acetonide [Nasacort] 55 mcg aerosol,spray 1 spray intranasal DAILY Rx Instructions: administer into each nostril clindamycin HCl [Cleocin HCl] 300 mg capsule 300 mg PO Q8H Qty: 21 0RF artifi.tears(hypromellose)(PF) 1.7 % drops with applicator 1 drp EACH EYE DAILY PRN (Reason: Dry Eyes) simvastatin 40 mg tablet 40 mg PO DAILY Qty: 90 1RF doxycycline hyclate 100 mg capsule 100 mg PO BID Qty: 14 0RF lisinopril 40 mg tablet 40 mg PO DAILY Qty: 90 2RF Follow-up/Referrals: Felipe Bae MD [Primary Care Provider, [facility]] Time of Disposition: 05:35
[2025-05-14 03:39] LABS: Hematocrit 53.3 % (42.0-52.0); Hemoglobin 17.1 g/dL (14.0-18.0); Immature Granulocyte Percent A 0.2 % (0-0.5); Lymphocytes Absolute Auto 0.41 K/mm3 (0.9-3.2); Mean Corpuscular HGB Conc 32.1 g/dl (32-36); Mean Corpuscular Hemoglobin 31.3 pg (26-34); Mean Corpuscular Volume 97.6 fl (80-100); Nucleated Red Blood Cells Absolute Auto 0.000 K/mm3 (0.0-0.012); Nucleated Red Blood Cells Perc 0.0 % (0.0-0.2); Platelet Count Result 179 k/mm3 (150-375); Red Blood Count 5.46 M/mm3 (4.6-6.20); White Blood Count 8.2 K/mm3 (4.5-10.0)
[2025-05-14 04:03] LABS: Alanine Aminotransferase 37 U/L (6-50); Albumin Level 4.5 g/dL (3.5-5.1); Alkaline Phosphatase 82 U/L (38-126); Anion Gap 8 mmol/L (4-12); Aspartate Amino Transferase 43 U/L (17-59); Bilirubin,Total 0.8 mg/dL (0.2-1.3); Blood Urea Nitrogen 26 mg/dL (9-20); Calcium 9.7 mg/dL (8.4-10.2); Carbon Dioxide 28 mmol/L (22-30); Chloride 105 mmol/L (98-107); Estimated Glomerular Filt Rate > 60; Glucose 120 mg/dL (65-110); Potassium 4.8 mmol/L (3.4-5.0); Sodium 141 mmol/L (137-145); Total Protein 8.0 g/dL (6.3-8.2)
[2025-05-14 05:31] VITALS: BP 195/80; PULSE 81; RESP 17; O2SAT 99
[2025-05-14 05:39] LABS: Add Urine Microscopic? YES; Appearance Urine Clear (Clear); Glucose Urine UA Negative (Negative); Leukocyte Esterase Ur Negative LEU/UL (Negative); Nitrate Urine Negative (Negative); Non Pathogenic Casts 0-2; Specific Grav Ur > 1.045 (1.001-1.035)
[2025-05-14] MEDS: MORPHINE SULFATE (*CRX) 2 MG/ML INJ IV PUSH ×2 (06:26→12:10)
[2025-05-14 06:31] LABS: INR 1.2; Prothrombin Time 14.7 Seconds (11.1-14.7)
[2025-05-14 06:32] LABS: Partial Thromboplastin Time 30.9 Seconds (22.3-36.8)
[2025-05-14 06:45] VITALS: BP 205/87; PULSE 73; RESP 13; O2SAT 96
[2025-05-14 07:11] VITALS: BP 205/87; PULSE 73; RESP 13; O2SAT 96
--- NOTE | 2025-05-14 07:25 | PC.NURSE ---
This patient, Tyler Moreno, was admitted to [facility] Surg Room 322-02. Patient/family oriented to hospital policies and general routines including ID bracelet, bed and alarms, visiting hours, pain management, procedures, bathroom and other care routines, personal items, smoking policy, room service/diet, and visiting hours. Information on how to activate the Rapid Response Team has been discussed. Patient/Family are encouraged to report perceived risks to care and to ask questions if they do not understand what they are told or what they should do.
[2025-05-14 07:30] VITALS: BP 185/65; PULSE 78; RESP 16; TEMP 36.1; O2SAT 97
[2025-05-14 07:35] VITALS: BMI 28.7
--- NOTE | 2025-05-14 09:52 | S_PTH ---
PATIENT: Tyler Moreno LOC: [id number] U#:[id number] AGE/SX: 74/M ROOM: 322 RE05/14/[address]: Corazon Roland MD : 1950 BED: 02 DIS: 05/14/2025 SPEC #: [id number] RECD: 05/14/25 12:02 STATUS: ANA LUISA RESylvia #: [id number] WISAM: 05/14/25 09:[address]: Ra House DEPT: [facility] Surgical RECD BY: Gallo Parsons ENTERED: 05/14/25 12:05 SP TYPE: Surgical OTHR DR: DO Felipe Park MD Tissues: A - Lymph Node Biopsy Procedures: Montero Keratin Unstained Slides Hematoxylin and Eosin Stain [place]/Sandra A Gross and Microscopic Level 4 CD3 SOX 10 HMB 45 CD45 CD 20 Flow Cytometry
--- NOTE | 2025-05-14 13:50 | PM.IMHP ---
H&P: HPI History of Present Illness Date/Time: 05/14/25 13:50 Chief Complaint: right groin piain Narrative: 74 yo male with PMH of HTN and HLD, on testosterone replacement, who presented to the ER on account of right groin pain and swelling. Patient noted that he has been having right groin swelling the past month and has been following with [facility]igh who planned for PET/CT scan however last ngiht he started having pain which caused him to present to the ER for proper eval and care. Denies any chest pain, SOB, vomiting, diarrhea or focal symptoms. ER eval notable for BP 195/80, labs notable for PSA 7.4, T 261, otherwise unremarkable. CT AP showed prominent right inguinal and retroperitoneal lymphadenopahty which could be metastatic or due to lymphoma. Patient had biopsy done prior to this encounter. Review of Systems Review of Systems: All other systems were reviewed and negative except as noted in the HPI above PMFSH Past Medical History Medical History Bradycardia Respiratory crackles at both lung bases Tonsillectomy planned Basal cell carcinoma leg Pigmented malignant lesion of skin BMI 32.0-32.9,adult Subcutaneous mass Screening for thyroid disorder Screening for prostate cancer Screening for diabetes mellitus Potassium (K) excess Elevated bilirubin Changing skin lesion Atelectasis of both lungs Acute non-recurrent maxillary sinusitis BMI 30.0-30.9,adult Family History Family History Father Dementia Mother Diabetes mellitus Morbid obesity Rheumatoid arthritis Heart disease Hypertension Sibling Heart disease Other Family history of arthritis Family history of congestive heart failure Social History Social History Smoking packs per day: 1 Smoking cigarettes per day: 20.0 Years smoked: 20 Smoking pack-years: 20.00 Smoking status: Former smoker Tobacco type: cigarettes Second hand tobacco smoke exposure: No Smoking end date: 09/12/86 Alcohol intake: never Drinks per week: 1 Alcohol use details: beer Substance use: never Substance use type: marijuana Do You Feel Safe in your Home?: Yes Lack of Transportation: No Lack of Food: Never True Current Housing: I Have Housing Concerned About Future Housing: No Difficulty Paying Gas/Electric Bills: No Difficulty Paying for Meds: No Currently Unemployed: No Education: Bachelor's Degree Difficulty w/ Childcare or Family Care: No Living arrangements: with family Occupation/Education: occupation 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[employer] Gender identity (if verbalized by the patient): Male Sexual Orientation (if Verbalized by the Patient): Straight or Heterosexual Spiritual care concerns: No Agree to blood products: Yes Meds Home Medications and Allergies Home Medications ?Medication ?Instructions ?Recorded ?Confirmed ?Type aspirin 81 mg tablet,delayed 81 mg PO DAILY 10/18/19 05/14/25 History release ascorbic acid (vitamin C) 500 mg 500 mg PO DAILY 01/09/24 05/14/25 History capsule,extended release cholecalciferol (vitamin D3) 50 50 mcg PO DAILY 01/09/24 05/14/25 History mcg (2,000 unit) capsule kicavpqtgthw-gwu-ynsvy acid-vit 1 tablet PO DAILY 01/09/24 05/14/25 History K-lycop 400 mcg-20 mcg-370 mcg tablet (Men's 50 Plus Daily Formula) triamcinolone acetonide 55 mcg 1 spray intranasal DAILY 01/09/24 05/14/25 History nasal spray aerosol (Nasacort) artifi.tears(hypromellose)(PF) 1.7 1 drp EACH EYE DAILY PRN Dry Eyes 06/25/24 05/14/25 History % eye drops with applicator testosterone undecanoate 158 mg 158 mg PO DAILY 02/28/25 05/14/25 History capsule (Jatenzo) simvastatin 40 mg tablet 40 mg PO DAILY #90 tabs 03/25/25 05/14/25 Rx lisinopril 40 mg tablet 40 mg PO DAILY #90 tabs 04/14/25 05/14/25 Rx Allergies Allergy/AdvReac Type Severity Reaction Status Date / Time Penicillins Allergy Intermediate Hives Verified 05/14/25 07:51 Vital Signs Vital Signs - 24 hr 05/14/25 03:06 05/14/25 05:31 05/14/25 06:45 Temperature 97.5 F L Pulse Rate 66 81 73 Respiratory Rate 14 17 13 Blood Pressure 214/84 H 195/80 H 205/87 H Pulse Oximetry 98 99 96 Oxygen Delivery Room Air 05/14/25 07:11 05/14/25 07:30 Temperature 97.0 F L Pulse Rate 73 78 Respiratory Rate 13 16 Blood Pressure 205/87 H 185/65 H Pulse Oximetry 96 97 Oxygen Delivery Exam Narrative: General: alert and comfortable Eyes: EOMI, PERRLA ENNT External ears normal, Neck is supple, no masses, Respiratory systems: Clear to auscultation Cardiovascular S1, S2, normal rhythm, no murmur, rub, or gallop; no thrill or palpable murmurs on palpation. Gastrointestinal: soft, non-tender, and non-distended abdomen with no masses; BS present Skin: no rash, lesions, ulcerations, subcutaneous nodules or induration Musculoskeletal: no abnormality and no tenderness, normal ROM Neurologic: Alert and oriented x3, non focal Mental Status Exam: normal affect : right inguinal mass, non tender, however tenderness on right upper thigh, no deeformity noted H&P: Results Labs Labs: Short CBC 05/14/25 Range/Units 03:32 WBC 8.2 (4.5-10.0) K/mm3 Hgb 17.1 (14.0-18.0) g/dL Hct 53.3 H (42.0-52.0) % Plt Count 179 (150-375) k/mm3 BMP 05/14/25 03:32 Sodium 141 Potassium 4.8 Chloride 105 Carbon Dioxide 28 BUN 26 H Creatinine 1.06 Glucose 120 H Calcium 9.7 Liver Function 05/14/25 Range/Units 03:32 Total Bilirubin 0.8 (0.2-1.3) mg/dL AST 43 (17-59) U/L ALT 37 (6-50) U/L Alkaline Phosphatase 82 (38-126) U/L Albumin 4.5 (3.5-5.1) g/dL Urine 05/14/25 Range/Units 05:28 Urine Color Yellow (Yellow) Urine Appearance Clear (Clear) Urine pH 6.0 (5.0-9.0) Ur Specific [place] > 1.045 H (1.001-1.035) Urine Protein Trace (Negative) mg/dL Urine Glucose (UA) Negative (Negative) mg/dL Assessment and Plan Assessment and plan (1) Inguinal mass: Code(s): R19.09 - Other intra-abdominal and pelvic swelling, mass and lump Status: Acute Plan Right inguinal mass CT AP showed revieweed ss/p biopsy adn patholoty pending Patient started on PRN pain control with PO NOrco 10/325 q6 PRN Patient follows with Dr Ricardo monitor HTN with elevated blood pressure Contineu hoem Lisinopril Added HCTZ 12.5 mg daily monitor HLD contineu home meds Testosterone replacement patient on replacement however testesterone level low today DVT prophylaxis on Sq Lvoenox Full code SDM: Florence Moreno, Hospitalist [facility] Advance Care Plan I have confirmed that the patient's Advanced Care Plan is present, code status is documented, or surrogate decision maker is listed in patient medical record.: Yes Medication Reconciliation I have utilized all available resources to obtain, update and review the patients current medications (includes all prescriptions, OTC, herbals, cannabis, and nutritional supplements).: Yes
[2025-05-14 14:00] VITALS: BP 161/61; PULSE 72; RESP 22; TEMP 36.8; O2SAT 98
--- NOTE | 2025-05-14 14:25 | P.DS_ITS ---
DS: Admitting Diagnosis Discharge Date 05/14/2025 Admitting Diagnosis Right groin pain DS: Discharge Diagnosis Discharge Diagnosis (1) Lymphadenopathy: Code(s): R59.1 - Generalized enlarged lymph nodes Status: Acute DS: Summary Hospital Course Hospital Course: 74 yo male with PMH of HTN and HLD, on testosterone replacement, who presented to the ER on account of right groin pain and swelling. Patient noted that he has been having right groin swelling the past month and has been following with [facility] who planned for PET/CT scan however last ngiht he started having pain which caused him to present to the ER for proper eval and care. Denies any chest pain, SOB, vomiting, diarrhea or focal symptoms. ER eval notable for BP 195/80, labs notable for PSA 7.4, T 261, otherwise unremarkable. CT AP showed prominent right inguinal and retroperitoneal lymphadenopathy which could be metastatic or due to lymphoma. Patient had biopsy done prior to this encounter. Right inguinal mass CT AP showed revieweed ss/p biopsy adn patholoty pending Discharged on Oxycodone and Diclofenac PRN Patient follows with Dr Ricardo monitor HTN with elevated blood pressure Continue hoem Lisinopril Added HCTZ 12.5 mg daily monitor HLD continue home meds Testosterone replacement patient on replacement however Testosterone level low today Discussed with patient to follow up with [facility] for pathology report and further plans. Time Spent with Patient Time attestation: Total time spent providing and/or coordinating discharge services: DS: Data Data Completed and Pending Pending studies at discharge: Pending at discharge 05/14/25 09:52 Surgical [PTH] Routine Labs on day of discharge: Labs from last 24 hours 05/14/25 05/14/25 05/14/25 05:58 05:28 03:32 WBC 8.2 RBC 5.46 Hgb 17.1 Hct 53.3 H MCV 97.6 MCH 31.3 MCHC 32.1 RDW 13.8 Plt Count 179 MPV 10.4 Immature Gran % (Auto) 0.2 Neut % (Auto) 88.6 H Lymph % (Auto) 5.0 L [place] % (Auto) 4.9 Eos % (Auto) 0.7 Baso % (Auto) 0.6 Lymph # (Auto) 0.41 L [place] # (Auto) 0.4 Eos # (Auto) 0.1 Baso # (Auto) 0.1 Abs Immat Gran (auto) 0.02 Absolute Neuts (auto) 7.2 H Absolute Nucleated RBC 0.000 Nucleated RBC % 0.0 PT 14.7 INR 1.2 APTT 30.9 Sodium 141 Potassium 4.8 Chloride 105 Carbon Dioxide 28 Anion Gap 8 BUN 26 H Creatinine 1.06 Estim Creat Clear Calc Not Reportable Estimated GFR > 60 Glucose 120 H Calcium 9.7 Total Bilirubin 0.8 AST 43 ALT 37 Alkaline Phosphatase 82 Total Protein 8.0 Albumin 4.5 Urine Color Yellow Urine Appearance Clear Urine pH 6.0 Ur Specific [place] > 1.045 H Urine Protein Trace Urine Glucose (UA) Negative Urine Ketones 1+ H Ur Blood (Man) Negative Urine Nitrate Negative Urine Bilirubin Negative Urine Urobilinogen 0.2 Leukocyte Esterase Rfl Negative Urine RBC 0-2 Urine WBC 0-5 Ur Squamous Epith Cells None seen Urine Bacteria None seen Urine Casts 0-2 Discharge Plan Discharge Attending physician on discharge: Corazon Roland Discharging Clinician: Corazon Roland Anticipated Discharge Date/Time: 05/14/25 14:14 Patient Disposition: Home Activity: as tolerated Diet: as tolerated and regular Patient Instructions: Antibiotic Form Patient Language: Irish Stand Alone Forms: General Discharge Information Follow-up/Referrals: Deng Ricardo MD [Physician, Hematology] Referral Note: Contineu follow up with Felipe Hartman MD [Primary Care Provider, Family Practice] Referral Note: F/u with PCP in 3-5days Discharge Medications: New oxycodone 10 mg tablet 10 mg PO Q6H PRN (Reason: pain) Qty: 10 0RF diclofenac potassium 50 mg tablet 50 mg PO TID PRN (Reason: pain) Qty: 10 0RF hydrochlorothiazide 12.5 mg Capsule 12.5 mg PO QAM 30 Days Qty: 30 0RF Continued Jatenzo 158 mg capsule 158 mg PO DAILY Rx Instructions: must administer with a meal/food aspirin 81 mg tablet,delayed release (DR/EC) 81 mg PO DAILY Men's 50 Plus Daily Formula 400-20-370 mcg tablet 1 tablet PO DAILY ascorbic acid (vitamin C) 500 mg capsule, extended release 500 mg PO DAILY cholecalciferol (vitamin D3) 50 mcg (2,000 unit) capsule 50 mcg PO DAILY triamcinolone acetonide [Nasacort] 55 mcg aerosol,spray 1 spray intranasal DAILY Rx Instructions: administer into each nostril artifi.tears(hypromellose)(PF) 1.7 % drops with applicator 1 drp EACH EYE DAILY PRN (Reason: Dry Eyes) simvastatin 40 mg tablet 40 mg PO DAILY Qty: 90 1RF lisinopril 40 mg tablet 40 mg PO DAILY Qty: 90 2RF Date of admission: 05/14/25 05:33 Primary Care Provider: Felipe Bae Admitting Provider: Yesi Blount Attending physician on admission: Yesi Blount Condition: Stable
[2025-05-14] MEDS: HYDROcodone/acetaminophen (*CRX) 10-325 MG TABLET 1 TAB PO (14:52)
== END 2025-05-14 15:58 | disposition home or self-care (01) ==
LOC: ANHED 05:36 → ANH3MEDSUR 14:14
PROVIDERS: Admitting Provider Internal Medicine; Emergency Provider Emergency Medicine; PCP Family Medicine; Visit Provider Internal Medicine
DX: C85.95 Non-Hodgkin lymphoma, unspecified, lymph nodes of inguinal region and lower limb (principal); Z79.82 Long term (current) use of aspirin; Z87.891 Personal history of nicotine dependence; I10 Essential (primary) hypertension; E78.5 Hyperlipidemia, unspecified; Z79.890 Hormone replacement therapy
CPT/HCPCS: 36415; 38505; 74177; 76942; 80053; 81001; 85025; 85610; 85730; 88108; 88184; 88185; 88305; 88341; 88342; 88360; 96374; 96375; 96376; 99285; A9270; G0378; J0360; J2270; Q9967

== ENCOUNTER 2025-05-20 15:04 | Outpatient (CLI) | payer OTHER, SELFPAY ==
--- NOTE | ~2025-05-20 | US_ITS ---
EXAMINATION: US venous doppler [facility], 05/20/2025 15:00 CDT HISTORY: CHRIS Leg swelling COMPARISON: None Technique: Angel-scale and color Doppler images were attempted of the lower saphenofemoral junction, common femoral vein,superficial femoral vein, proximal deep femoral vein, proximal deep femoral vein, popliteal vein and posterior tibial veins. Findings: Deep Venous System:Normal flow, augmentation and compressibility. No echogenic thrombus identified. Superficial Venous SystemNo superficial thrombophlebitis. Soft tissues: Soft tissues are enlarged lymph nodes in the right inguinal region the largest 2 x 2 centimeters possibly reactive Impression: Negative for DVT. Reviewed, dictated and finalized at location A. Impression: Negative for DVT.
--- OUTSIDE RECORDS SUMMARY | 2025-05-20 15:13 | XMS_ITS | Encounter Summary ---
Author Organization [facility] Address [address] [place] [address] Care Team Providers Care Van Loader Name Role Phone Felipe Bae MD Primary Care Provider [phone] Encounter Details Date Type Department Care Team (Late st Contact Info) Description 05/16/[address] 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
--- OUTSIDE RECORDS SUMMARY | 2025-05-20 15:13 | XMS_ITS | Encounter Summary ---
Author Organization [facility] Address [address] [place] [address] Care Team Providers Care Ceramic Tile Installation Helper Name Role Phone Felipe Bae MD Primary Care Provider [phone] Encounter Details Date Type Department Care Team (Late st Contact Info) Description 05/15/2025 Lab Requisition [facility] - Pathology Lab [address] [place] [id number] Jose Alejandro Hardwick MD [address] [address] Illness, unspecified Social History Tobacco Use Types Packs/Day Years Used Date Smoking Tobacco: Never Assessed Sex and Gender Information Value Date Recorded Sex Assigned at Not on file 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 Gender Identity Not on file Sexual Orientation Not on file documented as of this encounter Plan of Treatment Not on file documented as of this encounter Procedures Procedure Name Priority Date/Time Associated Diagnosis Comments PATHOLOGY TISSUE Routine 05/14/2025 9:52 AM CDT Illness, unspecified documented in this encounter Results * PATHOLOGY TISSUE (05/14/2025 9:52 AM CDT) Case Report Surgical Pathology Report Case: [id number] Authorizing Provider: Jose Alejandro Hardwick MD Collected: 05/14/2025 09:52 AM Ordering Location: [facility] - Received: 05/15/2025 04:36 PM Pathology Lab Pathologist: Maliha Jean Baptiste MD Specimen: Lymph Node Biopsy 05/17/2025 10:20 AM [facility] Final Diagnosis Lymph node, right inguinal, needle core biopsy: - Large B-cell lymphoma - See description 05/17/2025 10:20 AM [facility] at 1020 CDT Microscopic Description and Comment Sections show thin cores of soft tissue diffusely effaced by a pleomorphic infiltrate of large cells. Frequent apoptotic bodies are seen. No residual normal gianni architecture is identified. Immunohistochemistry is performed on the tissue to further characterize the cells. The infiltrate is positive for CD45, CD20, BCL-6, MUM-1, BCL-2, CD30 (weak), and cyclin D1. The tumor cells lack expression of CD5, CD10, and c-MYC. The proliferation index by Ki-67 is ~40%. Pancytokeratin, SOX-10, Alireza, and HMB45 are negative. In summary, the right inguinal lymph node is involved by a large B-cell lymphoma. The differential diagnosis includes a high-grade B-cell lymphoma versus a diffuse large B-cell lymphoma of non-germinal center origin. The presence of cyclin D1 expression in large B-cell lymphoma is described and is associated with aggressive clinical behavior and inferior survival outcomes. FISH for abnormalities of c-MYC, BCL-2, and BCL-6 is recommended to evaluate for the possibility of a high-grade B-cell lymphoma. Natalya Ojeda, Jhonny Saha, Surya Mcmillan, Jose A Denny, Mike Walton, Teddy Omer, Marline Cantu, Stvee Jimenez; Cyclin D1-Positive Expression Associated with Prognostic Significance and Clinicopathological Characteristics By Paving the Way for Proliferation in Diffuse Large B-Cell Lymphomas. Blood 202; 142 (Supplement 1): 1744. doi: https://doi.org/10.11 82/xmqhr-[email or web address] 05/17/2025 10:20 AM [facility] Clinical History 74 year old man with right groin pain and swelling. 05/17/2025 10:20 AM [facility] Materials Received Received are 9 slides and 1 block labeled [id number] along with a copy of the outside pathology report. The materials originate from [address] [address]. All original materials are returned to the referring institution, along with a copy of our final report. 05/17/2025 10:20 AM CDT [facility] Pathologist Location at [facility] 05/17/2025 10:20 AM CDT [facility] Disclaimer The performance characteristics of all immunohistochemical and indirect immunofluorescence stains (if any) cited in this report were determined by the Histopathology Laboratory of [facility]. Some of these tests were developed by our own laboratory and have not been cleared or approved by the US Food and Drug Administration. The FDA does not require this test to go through premarket FDA review. These tests are used for clinical purposes. They should not be regarded as investigational or for research. This laboratory is certified under the Clinical Laboratory Improvement Amendments (CLIA) as qualified to perform high complexity clinical laboratory testing. This case has been personally reviewed and interpreted by the attending (teaching) pathologist. 05/17/2025 10:20 AM CDT [facility] Embedded Images 05/17/2025 10:20 AM T [facility] Pathology/Cytolo gy BIOPSY OF LYMPH NODE / Unknown 05/14/2025 9:52 AM CDT 05/15/2025 4:36 PM CDT Jose Alejandro Hardwick MD LAB - PATHOLOGY/CYTOLOGY ORDERAB LES Final Result Performing Organization Address City/State/[facility] Co de Phone Number [facility] [address] [place] [address], [facility] [phone] documented in this encounter Visit Diagnoses Diagnosis Illness, unspecified documented in this encounter Care Teams Ceramic Tile Installation Helper Relationship Specialty Start Date End Date Felipe Bae MD [address] [place] [address] PCP - General 11/22/22 documented as of this encounter
--- OUTSIDE RECORDS SUMMARY | 2025-05-20 15:13 | XMS_ITS | Clinical Summary ---
Author Organization [facility] (Formerly [facility]) [facility] Address [address] [facility] [address] Care Team Providers Care Sales And Marketing Engineer Name Role Phone Felipe Bae MD Primary Care Provider [phone] Allergies Active Allergy Reactions Criticality Noted Date [...] Encounters Date Type Department Care Team Description 05/20/2025 Telephone [facility] ([facility]) Oncology and Hematology [facility] Jose Alberto Waddell [address] [place] [phone] Deng Ricardo MD Leg Swelling 05/06/2025 Orders Only [facility] ([facility]) Oncology and Hematology - [place] [address] [place] [phone] Deng Ricardo MD Enlarged lymph nodes (Primary Dx); Malignant melanoma of left lower extremity (CMS/HCC) 04/30/2025 Orders Only [facility] ([facility]) Oncology and Hematology - [place] Guillaume W[address]ell [address] [place] [phone] Deng Ricardo MD 04/29/2025 3:45 PM CDT Office Visit [facility] ([facility]) Oncology and Hematology [place] [address] [place] [phone] Deng Ricardo MD Erythrocytosis (Primary Dx); Testosterone deficiency; Iron overload; Lymphadenopathy, inguinal; Malignant melanoma of left lower extremity (CMS/HCC) 04/24/2025 Orders Only [facility] ([facility]) Oncology and Hematology - [place] [address] Jose Alberto [address] [place] [phone] Deng Ricardo MD 03/11/2025 Orders Only [facility] ([facility]) Oncology and Hematology - [place] [address] [place] [phone] Deng Ricardo MD from Last 3 Months [...] Care Team (Late st Contact Info) Description 05/22/2025 2:30 PM CDT Office Visit [facility] ([facility]) Oncology and Hematology [facility] [address] [place] [address] Barb Strauss MD [address] [place] [address] 09/17/2025 1:00 PM PONY ROLL FINISHER Office Visit [facility] ([facility]) Oncology and Hematology [facility] [address] [place] [phone] Deng Ricardo MD [address] [facility] [address] [place] [address] Health Maintenance Due Date Last Done Comments DTAP/TDAP/TD VACCINES (1 - Tdap) 1971 Traditional Medicare (ACO) Annual Wellness Visit 09/27 COLORECTAL SCREENING 1997 Colorectal Cancer Screening 1997 [...] Res ult from Last 3 Months Insurance MEDICARE PART A HOSPITAL ONLY [employer] ONLY Care Teams Sales And Marketing Engineer Relationship Specialty Start Date End Date Felipe Bae MD [address] [place] [phone] PCP - General Family Practice 11/06/19
--- OUTSIDE RECORDS SUMMARY | 2025-05-20 15:13 | XMS_ITS | Encounter Summary ---
Author Organization [facility] [employer] [facility] Address [address] [place] [address] Care Team Providers Care Mobile Health Vehicle Operator Name Role Phone Felipe Bae MD Primary Care Provider [phone] Reason for Referral * Radiology Services (Urgent) - Closed Specialty Diagnoses / Procedures Referred By Contac t Referred To Contact Diagnoses Swelling of both lower extremities Procedures US VENOUS DOPPLER LEG BILATERAL Deng Ricardo MD [address] [place] [address] Phone: tel: fax: [place] [address] Referral ID Status Reason Start Date Expiration Date V isits Requested Visits Authorized [id number] Closed [facility] CTS 05/20/2025 06/20/2026 1 1 Reason for Visit * Reason Onset Date Comments Leg Swelling 05/20/2025 Encounter Details Date Type Department Care Team (Late st Contact Info) Description 05/20/2025 Telephone [facility] Oncology and Hematology [facility] [address] [facility] [address] [place] [address] Deng Ricardo MD [address] [place] [address] Leg Swelling Social History Tobacco Use Types Packs/Day Years [...] on file documented as of this encounter Miscellaneous Notes * Telephone Encounter - Josy Patel - 05/20/2025 11:09 AM CDT US ordered for today. Patient will have follow up on 05/23/25 * Telephone Encounter - Josy Patel - 05/20/2025 11:07 AM CDT ----- Message from Dr. Barb Strauss sent at 05/19/2025 10:47 AM CDT ----- Regarding: RE: ER Visit It seems like patient has right groin and right external iliac lymph nodes as well as mildly enlarged let inguinal lymph nodes. The swelling in lower extremities is secondary to obstruction of blood flow due to lymphadenopathy. 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 This patient would need to start treatment NATASHA. He is to see Dr. Ricardo 05/28/25. Only chemotherapyand subsequently reduction in lymph nodes will take care of swelling in the legs. Please get- Doppler venous ultrasound of both lower extremities to rule out DVT PORT placement to start chemotherapy NATASHA. ----- Message ----- From: Josy Patel Sent: 05/16/2025 9:57 AM CDT To: Barb Strauss MD Subject: ER Visit Patient called because over the weekend he was in the ER at [place]. Looks like they did a biopsy of the inguinal mass but the pathology is not back yet. Patient said that he is having a lot of swelling in his legs. He is wanting to know if there is anything that he can do for the swelling. Pleaseadvise. 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 Office Visit [facility] Oncology and Hematology - Shawn [address] [place] [address] Deng Ricardo MD [address] [facility] [address] [place] [address] Scheduled Orders Name Type Priority Associated Diagnoses Orde r Schedule US VENOUS DOPPLER LEG BILATERAL Imaging Stat Swelling of both lower extremities Expected: 05/20/2025, Expires: 05/20/2026 documented as of this encounter Visit Diagnoses Diagnosis Swelling of both lower extremities- Primary documented in this encounter Care Teams Mobile Health Vehicle Operator Relationship Specialty Start Date End Date Felipe Bae MD [address] [place] [phone] PCP - General Family Practice 11/06/19 documented as of this encounter
--- OUTSIDE RECORDS SUMMARY | 2025-05-20 15:13 | XMS_ITS | Encounter Summary ---
Author Organization [facility] Address [address] [place] [address] Care Team Providers Care Director Of Rehabilitation And Wellness Name Role Phone Felipe Bae MD Primary Care Provider [phone] Encounter Details Date Type Department Care Team (Late st Contact Info) Description 05/15/2025 Lab Requisition [facility] - Pathology Lab [address] [place] [phone] Jose Alejandro Hardwick MD [address] [address] Other intra-abdominal and pelvic swelling, mass and lump Social History Tobacco Use Types Packs/Day Years Used Date Smoking Tobacco: Never Assessed Sex and Gender Information Value Date Recorded Sex Assigned at Not on file 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 Gender Identity Not on file Sexual Orientation Not on file documented as of this encounter Plan of Treatment Not on file documented as of this encounter Procedures Procedure Name Priority Date/Time Associated Diagnosis Comments FLOW CYTOMETRY TISSUE PANEL Routine 05/14/2025 9:52 AM CDT Other intra-abdominal and pelvic swelling, mass and lump documented in this encounter Results * FLOW CYTOMETRY TISSUE PANEL (05/14/2025 9:52 AM CDT) Case Report Flow Cytometry Case: [id number] Authorizing Provider: Jose Alejandro Hardwick MD Collected: 05/14/2025 09:52 AM Ordering Location: [facility] - Received: 05/15/2025 01:37 PM Pathology Lab Pathologist: Maliha Jean Baptiste MD Specimen: Lymph Node, INGUINAL 05/15/2025 4:42 PM [facility] Final Diagnosis Lymph node, right inguinal, flow cytometric immunophenotypic analysis: - No evidence of non-Hodgkin lymphoma - See interpretation 05/15/2025 4:42 PM [facility] at 1642 CDT Flow Cytometry Interpretation Viability: 84% B-cells: polytypic, kappa:lambda ratio 1.5:1 T-cells: no immunophenotypic aberrancy detected CD4:CD8 ratio 3.4:1 A cytospin prepared from the flow cytometry specimen has been reviewed for it quality analyst purposes. 05/15/2025 4:42 PM [facility] Flow Cytometry Results Differential Result Comment Flow Cell Count /uL 3,100 Total Viability % 84.0 Lymphocytes % 91 Dim CD45 Region % 1 Monocytes % 0 Granulocytes % 7 05/15/2025 4:42 PM [facility] Reason for test Other intra-abdominal and pelvic swelling, mass and lump 05/15/2025 4:42 PM [facility] Client Specimen ID # [id number] 05/15/2025 4:42 PM [facility] Number of markers 16 were performed. A-2 Flow CD10 A-4 Flow CD20 A-5 Flow CD23 A-10 Flow CD2 A-11 Flow CD3 A-12 Flow CD4 A-16 Flow CD1a A-3 Flow CD19 A-6 Flow CD34 A-7 Flow CD45 A-13 Flow CD5 A-14 Flow CD7 A-15 Flow CD8 A-17 Flow CD30 A-8 Mack+CD19+ A-9 Lambda+CD19+ 05/15/2025 4:42 PM [facility] Pathologist Location at [facility] 05/15/2025 4:42 PM [facility] Disclaimer Test performed at [facility], [address] [place] [address], [address]. *The established laboratory minimum viability is 70%. Values below the minimum may result in the failure to find an abnormal population of cells. This test was developed and its performance characteristics determined by the Flow Cytometry Laboratory. It has not been cleared by the [place] Food and Drug Administration (FDA). The FDA has determined that such clearance or approval is not necessary. This test is used for clinical purposes. It should not be regarded as investigational or for research. This laboratory is regulated under the Clinical Laboratory Improvement Amendments of 1998 (CLIA) as a qualified to perform high complexity clinical testing. 05/15/2025 4:42 PM CDT [facility] Embedded Images 4:42 PM CDT [facility] Pathology/Cytolo gy ENTIRE LYMPH NODE / Unknown 05/14/2025 9:52 AM CDT 05/15/2025 1:37 PM CDT Jose Alejandro Hardwick MD LAB - PATHOLOGY/CYTOLOGY ORDERAB LES Final Result [facility] [address] [phone] documented in this encounter Visit Diagnoses Diagnosis Other intra-abdominal and pelvic swelling, mass and lump documented in this encounter Care Teams Director Of Rehabilitation And Wellness Relationship Specialty Start Date End Date Felipe Bae MD [address] [place] [address] PCP - General 11/22/22 documented as of this encounter
--- OUTSIDE RECORDS SUMMARY | 2025-05-20 15:13 | XMS_ITS | Clinical Summary ---
Author Organization [facility] Address [address] [place] [address] Care Team Providers Care Biometry Teacher Name Role Phone Felipe Bae MD Primary Care Provider [phone] Source Comments [facility],non-owned Affiliates and Associated Physician Practices is amultiple site organization consisting of ambulatory clinics and hospital sitesin [place], [place], [place] and [place]. This disclosure is being madepursuant to the Care Everywhere program and may not contain all information available regarding this patient. Last updated 18.[facility] Encounters Date Type Department Care Team Description 05/16/2025 Lab Requisition [facility] - Pathology Lab [address] [place] [address] Jose Alejandro Hardwick MD Illness, unspecified 05/15/2025 Lab Requisition [facility] - Pathology Lab [address] [place] [address] Jose Alejandro Hardwick MD Illness, unspecified 05/15/2025 Lab Requisition [facility] - Pathology Lab [address] [place] [address] Jose Alejandro Hardwick MD Other intra-abdominal and pelvic swelling, mass and lump from Last 3 Months Social History Tobacco Use Types Packs/Day Years Used Date Smoking Tobacco: Never Assessed Sex and Gender Information Value Date Recorded Sex Assigned at Not on file 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 Gender Identity Not on file Sexual Orientation Not on file Plan of Treatment Health Maintenance Due Date Last Done Comments COLOGUARD (AGES 45-75) - COL ON CA SCREENING 1952 COLON MONITORING 1952 COLONOSCOPY - COLON CA SCREENING 1952 CT COLONOGRAPHY - COLON CA SCREENING 1952 Colorectal Cancer Screening 1952 FIT - COLON CA SCREENING 1952 FLEX SIG - COLON CA SCREENING 1952 LIPID TESTING 1952 HEPATITIS C SCREENING 09/23/1970 DTAP/TDAP/TD VACCINES (1 - Tdap) 1971 PNEUMOCOCCAL VACCINE 50+ (1 of 1 - PCV) 2002 ZOSTER VACCINE (1 of 2) 2002 COVID-19 VACCINE (1 - 2023-2 5 season) 2024 DEPRESSION SCREENING 09/12/2024 INFLUENZA VACCINE (#1) 2025 Respiratory Syncytial Virus (RSV) Vaccine Pt: or over 60 yrs (1 - 1-dose 75+ series) 2027 HEPATITIS B VACCINE Aged Out No longe r eligible based on patient's age to complete this topic HIB VACCINE Aged Out No longer eligi ble based on patient's age to complete this topic HPV VACCINE Aged Out No longer eligi ble based on patient's age to complete this topic MENINGOCOCCAL (Group B) VACC INE SHARED DECISION-MAKING Aged Out No longer eligibl e based on patient's age to complete this topic MENINGOCOCCAL GROUPS A/C/Y/W VACCINE Aged Out No longer eligible b ased on patient's age to complete this topic Procedures Procedure Name Priority Date/Time Associated Diagnosis Comments PATHOLOGY TISSUE Routine 05/14/2025 9:52 AM CDT Illness, unspecified FLOW CYTOMETRY TISSUE PANEL Routine 05/14/2025 9:52 AM CDT Other intra-abdominal and pelvic swelling, mass and lump from Last 3 Months Results * PATHOLOGY TISSUE (05/14/2025 9:52 AM CDT) Case Report Surgical Pathology Report Case: [id number] Authorizing Provider: Jose Alejandro Hardwick MD Collected: 05/14/2025 09:52 AM Ordering Location: [facility] - Received: 05/15/2025 04:36 PM Pathology Lab Pathologist: Maliha Jean Baptiste MD Specimen: Lymph Node Biopsy 05/17/2025 10:20 AM [facility] Final Diagnosis Lymph node, right inguinal, needle core biopsy: - Large B-cell lymphoma - See description 05/17/2025 10:20 AM [facility] at 1020 CDT Microscopic Description [...] Denny, Mike Walton, Teddy Omer, Marline Cantu, Steve Jimenez; Cyclin D1-Positive Expression Associated with Prognostic Significance and Clinicopathological Characteristics By Paving the Way for Proliferation in Diffuse Large B-Cell Lymphomas. Blood 202; 142 (Supplement 1): 1744. doi: https://doi.org/10.11 82/bklsl-2424-458146 05/17/2025 10:20 AM [facility] Clinical History 74 year old man with right groin pain and swelling. 05/17/2025 10:20 AM [facility] Materials Received Received are 9 slides and 1 block labeled [id number] along with a copy of the outside pathology report. The materials originate from [address] [place] [id number]. All original materials are returned to the referring institution, along with a copy of our final report. 05/17/2025 10:[address] [facility] Pathologist Location at [facility] 05/17/2025 10:[address] [facility] Disclaimer The performance characteristics of all immunohistochemical and indirect immunofluorescence stains (if any) cited in this report were determined by the Histopathology Laboratory of [facility]. Some of these tests were developed by [...] attending (teaching) pathologist. 05/17/2025 10:[address] [facility] Embedded Images 05/17/2025 10:[address] [facility] Pathology/Cytolo gy BIOPSY OF LYMPH NODE / Unknown 05/14/2025 9:52 AM CDT 05/15/2025 4:36 PM CDT us Jose Alejandro Hardwick MD LAB - PATHOLOGY/CYTOLOGY ORDERAB LES Final Result [facility] [address] [phone] * FLOW CYTOMETRY TISSUE PANEL (05/14/2025 9:52 AM CDT) Case Report Flow Cytometry Case: [id number] Authorizing Provider: Jose Alejandro Hardwick MD Collected: 05/14/2025 09:52 AM Ordering Location: [facility] - Received: 05/15/2025 01:37 PM Pathology Lab Pathologist: Maliha Jean Baptiste MD Specimen: Lymph Node, INGUINAL 05/15/2025 4:[address] [facility] Final Diagnosis Lymph node, right inguinal, flow cytometric immunophenotypic analysis: - No evidence of non-Hodgkin lymphoma - See interpretation 05/15/2025 4:42 PM [facility] at 1642 CDT Flow Cytometry Interpretation Viability: 84% B-cells: polytypic, kappa:lambda ratio 1.5:1 T-cells: no immunophenotypic aberrancy detected CD4:CD8 ratio 3.4:1 A cytospin prepared from the flow cytometry specimen has been reviewed for quality assurance lab technician purposes. 05/15/2025 4:42 PM [facility] Flow Cytometry Results Differential Result Comment Flow Cell Count /uL 3,100 Total Viability % 84.0 Lymphocytes % 91 Dim CD45 Region % 1 Monocytes % 0 Granulocytes % 7 05/15/2025 4:42 PM [facility] Reason for test Other intra-abdominal and pelvic swelling, mass and lump 05/15/2025 4:42 PM [facility] Client Specimen ID # [id number] 05/15/2025 4:42 PM [facility] Number of markers 16 were performed. A-2 Flow CD10 A-4 Flow CD20 A-5 Flow CD23 A-10 Flow CD2 A-11 Flow CD3 A-12 Flow CD4 A-16 Flow CD1a A-3 Flow CD19 A-6 Flow CD34 A-7 Flow CD45 A-13 Flow CD5 A-14 Flow CD7 A-15 Flow CD8 A-17 Flow CD30 A-8 Sattley+CD19+ A-9 Lambda+CD19+ 05/15/2025 4:42 PM [facility] Pathologist Location at [facility] 05/15/2025 4:42 PM [facility] Disclaimer Test performed at [facility], [address] [place] [address], [address]. *The established laboratory minimum viability is 70%. [...] complexity clinical testing. 05/15/2025 4:[address] [facility] Embedded Images 4:[address] [facility] Pathology/Cytolo gy ENTIRE LYMPH NODE / Unknown 05/14/2025 9:52 AM CDT 05/15/2025 1:37 PM CDT Jose Alejandro Hardwick MD LAB - PATHOLOGY/CYTOLOGY ORDERAB LES Final Result [facility] [address] [place] [address], [facility] [phone] from Last 3 Months Insurance [employer] Care Teams Biometry Teacher Relationship Specialty Start Date End Date Felipe Bae MD [address] [place] [address] PCP - General 11/22/22
== END 2025-05-20 15:05 | disposition home or self-care (01) ==
PROVIDERS: PCP Family Medicine; Visit Provider Internal Medicine Hematology & Oncology
DX: M79.89 Other specified soft tissue disorders (principal)
CPT/HCPCS: 93970

== ENCOUNTER 2025-06-21 02:40 | Day surgery (SDC) | payer OTHER, SELFPAY ==
--- NOTE | 2025-06-17 13:50 | PC.NURSE ---
[facility] has started construction of its new state of the art ER which will open Spring 2026. With this, we anticipate parking may be a challenge for some our surgical patients and families. Parking spaces are limited but are available for all Surgical, obstetrics, and ER patients sharing this lot. If you arrive and find you are having a hard time finding a parking space, please note that we understand the challenges, please drive around the hospital and park near Hospital Entrance 1. When you enter this entrance, you can ask a volunteer to direct or take you back to the surgical waiting area to check in. We appreciate everyone?s understanding of these expected challenges while we build for your future. Report to the Outpatient Waiting Room, entrance under the green pavilion located off [address], at time _6:30 AM on date __06/21/25 . Planned Procedure Time: ___8:30 AM .? Time changes happen often and if your time is changed the preop area will call you the afternoon before. - You and your visitor will be asked to self-screen and do not enter if you have any COVID symptoms. Please call surgeon if you need to reschedule. - A mask is optional within the hospital at this time. Patients may have clear liquids (water, carbonated beverages, clear teas, apple juice) until 3 hours prior to surgery ( 5:30 AM) with a maximum of 20 ounces. - No food from midnight until time of surgery and no smoking, or chewing tobacco (or any form of nicotine). No chewing gum, candy or mints. Take only the following medications with a SIP of water on the morning of surgery: __NONE DO NOT STOP ANY OF YOUR OTHER PRESCRIPTION MEDICATIONS PRIOR TO SURGERY EXCEPT THE FOLLOWING Hold all vitamins and supplements for 3 days per anesthesiologist.LAST DOSE 06/17/[address] LING BUT DON'T TAKE MORNING OF SURGERY Medications to discontinue per physician DICLOFENAC PER DR LING Date to take last dose Please no make-up, nail cambodian, hairspray, perfume, deodorant, or body powder the day of surgery.? No jewelry (including any body piercings) or valuables the day of surgery, leave them at home.? Please take a shower or bath the night before, or the morning of, surgery with an antibacterial soap.? Wear comfortable, loose fitting clothing.? Children are encouraged to wear pajamas. - Jewelry must be removed prior to entering the operating room.? Rings and piercings that are not removed may be cut off. - The hospital will not accept responsibility for valuables.? - Please leave all valuables, including medications, at home the day of surgery. If you are going home after surgery, a licensed light truck driver must drive you home.? - NO public transportation without another adult if you receive anesthesia. - We recommend that an adult stay with you for 24 hours following discharge. - We also recommend that you do not drive, make important decision, drink alcoholic beverages, or take any drugs that were not prescribed by your health care provider for at least 24 hours after your discharge time. Follow any additional instructions given to you from your surgeon. Telephone instructions given to ___PATIENT and asked if any additional questions and then verbalized understanding. Patient advised to call surgeon office or pre surgery nurse liaison [phone] if any additional questions.
[2025-06-17 14:08] VITALS: BMI 28.1
--- NOTE | ~2025-06-21 | XR_ITS ---
Examination: XR chest port-a-cath/central Clinical History: CHAR CATH INSERTION Comparison: 11/28/2023 Technique: Portable AP Findings: Left subclavian chest port with catheter tip mid SVC. Heart size normal. Lungs clear. No acute bony abnormality. IMPRESSION: 1. No pneumothorax or other acute cardiopulmonary findings given portable technique. 2. Left chest port catheter tip mid SVC. Reviewed, dictated and finalized at location R. IMPRESSION: 1. No pneumothorax or other acute cardiopulmonary findings given portable tech nique. 2. Left chest port catheter tip mid SVC.
--- NOTE | ~2025-06-21 | XR_ITS ---
EXAMINATION: XR fl guide central line place DATE: 06/21/2025 09:04 INDICATION: Port catheter insertion TECHNIQUE: Single fluoroscopic images of the central and right chest was obtained during procedure performed by Dr. Major. Radiologist was not present for the imaging or procedure. The amount of fluoroscopy time used during this procedure was 2.9 minutes. Total DAP was 1.02 mGym^2. COMPARISON: Chest radiograph dated 11/28/2023 FINDINGS: Distal tip of a right internal jugular central venous catheter with distal tip near the superior cavoatrial junction. Likely lap sponge markers project over the region of the right axilla. Visualized portion of the lungs are clear. IMPRESSION: 1. Fluoroscopy utilized during Port-A-Cath insertion with central venous catheter tip projecting over the superior cavoatrial junction. See procedure note for further detail. Reviewed, dictated and finalized at location A. IMPRESSION: 1. Fluoroscopy utilized during Port-A-Cath insertion with central venous cathet er tip projecting over the superior cavoatrial junction. See procedure note for further detail.
--- OUTSIDE RECORDS SUMMARY | 2025-06-21 02:44 | XMS_ITS | Encounter Summary ---
Author Organization [facility] Address [address] [facility] [place] [address] Care Team Providers Care Vp Global Name Role Phone Felipe Bae MD Primary Care Provider [phone] Encounter Details Date Type Department Care Team (Late st Contact Info) Description 05/15/2025 Lab Requisition [facility] - [facility]ology Lab [address] [place] [id number] Jose Alejandro Hardwick MD [address] [address] Other intra-abdominal and pelvic swelling, mass and lump Social History Tobacco Use Types Packs/Day Years Used Date Smoking Tobacco: Never Assessed Sex and Gender Information Value Date Recorded Sex Assigned at Not on file 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 Gender Identity Not on file Sexual Orientation [...] AM CDT) Case Report Flow Cytometry Case: [id number] Authorizing Provider: Jose Alejandro Hardwick MD Collected: 05/14/2025 09:52 AM Ordering Location: [facility] - Received: 05/15/2025 01:37 PM Pathology Lab Pathologist: Maliha Jean Baptiste MD Specimen: Lymph Node, INGUINAL 05/15/2025 4:42 PM [facility] Final Diagnosis Lymph node, right inguinal, flow cytometric immunophenotypic analysis: - No evidence of non-Hodgkin lymphoma - See interpretation 05/15/2025 4:42 PM [facility] at 1642 CDT Flow Cytometry Interpretation Viability: 84% B-cells: polytypic, kappa:lambda ratio 1.5:1 T-cells: no immunophenotypic aberrancy detected CD4:CD8 ratio 3.4:1 A cytospin prepared from the flow cytometry specimen has been reviewed for software quality manager purposes. 05/15/2025 4:42 PM [facility] Flow Cytometry Results Differential Result Comment Flow Cell Count /uL 3,100 Total Viability % 84.0 Lymphocytes % 91 Dim CD45 Region % 1 Monocytes % 0 Granulocytes % 7 05/15/2025 4:42 PM [facility] Reason for test Other intra-abdominal and pelvic swelling, mass and lump 05/15/2025 4:42 PM [facility] Client Specimen ID # [id number] 05/15/2025 4:42 PM [facility] Number of markers 16 were performed. A-2 Flow CD10 A-4 Flow CD20 A-5 Flow CD23 A-10 Flow CD2 A-11 Flow CD3 A-12 Flow CD4 A-16 Flow CD1a A-3 Flow CD19 A-6 Flow CD34 A-7 Flow CD45 A-13 Flow CD5 A-14 Flow CD7 A-15 Flow CD8 A-17 Flow CD30 A-8 [place]+CD19+ A-9 Lambda+CD19+ 05/15/2025 4:42 PM [facility] Pathologist Location at [facility] 05/15/2025 4:42 PM [facility] Disclaimer Test performed at [facility], [address] [place] [address], [address]. *The established laboratory minimum viability is 70%. [...] complexity clinical testing. 05/15/2025 4:42 PM CDT [facility] Embedded Images 4:42 PM CDT [facility] Pathology/Cytolo gy ENTIRE LYMPH NODE / Unknown 05/14/2025 9:52 AM CDT 05/15/2025 1:37 PM CDT Jose Alejandro Hardwick MD LAB - PATHOLOGY/CYTOLOGY ORDERAB LES Final Result [facility] [address] [phone] documented in this encounter Visit Diagnoses Diagnosis Other intra-abdominal and pelvic swelling, mass and lump documented in this encounter Care Teams Vp Global Relationship Specialty Start Date End Date Felipe Bae MD [address] [place] [address] PCP - General 11/22/22 documented as of this encounter
--- OUTSIDE RECORDS SUMMARY | 2025-06-21 02:44 | XMS_ITS | Clinical Summary ---
Author Organization [facility] Address [address] [place] [address] Care Team Providers Care Freight Breaker Name Role Phone Felipe Bae MD Primary Care Provider [phone] Source Comments [facility],non-owned Affiliates and Associated Physician Practices is amultiple site organization consisting of ambulatory clinics and hospital sitesin [place], [place], [place] and [place]. This disclosure is being madepursuant to the Care Everywhere program and may not contain all information available regarding this patient. Last updated 18.[facility] Encounters Date Type Department Care Team Description 05/16/2025 Lab Requisition [facility] - Pathology Lab [address] [place] [address] Jose Alejandro Hardwick MD Illness, unspecified 05/15/2025 Lab Requisition [facility] - Pathology Lab [address] [place] [address] Jose Alejandro Hardwick MD Illness, unspecified 05/15/2025 Lab Requisition [facility] - Pathology Lab [address] [place] [address] Jose Alejandro Hardwick MD Other intra-abdominal and pelvic swelling, mass and lump from Last 3 Months Social History Tobacco Use Types Packs/Day Years Used Date Smoking Tobacco: Never Assessed Sex and Gender Information Value Date Recorded Sex Assigned at Not on file 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 Gender Identity Not on file Sexual [...] COLON CA SCREENING 1952 LIPID TESTING 1952 COVID-19 VACCINE (#1) 1957 HEPATITIS C SCREENING 09/23/1970 DTAP/TDAP/TD VACCINES (1 - Tdap) 1971 PNEUMOCOCCAL VACCINE 50+ (1 of 2 - PCV) 1971 ZOSTER VACCINE (1 of 2) 1971 Respiratory Syncytial Virus (RSV) Vaccine Pt: or over 60 yrs (1 - Risk 60-74 years 1-dose series) 2012 DEPRESSION SCREENING 09/12/2024 INFLUENZA VACCINE (#1) 2025 HEPATITIS B VACCINE Aged Out No longe [...] Procedure Name Priority Date/Time Associated Diagnosis Comments SLIDE PREP HISTOLOGY Routine 05/16/2025 8:00 AM CDT Illness, unspecified PATHOLOGY TISSUE Routine 05/14/2025 9:52 AM CDT Illness, unspecified FLOW CYTOMETRY TISSUE PANEL Routine 05/14/2025 9:52 AM CDT Other intra-abdominal and pelvic swelling, mass and lump from Last 3 Months Results * SLIDE PREP HISTOLOGY (05/16/2025 8:00 AM CDT) Client Specimen ID # [id number] 06/14/2025 11:56 AM CDT [facility] Number of Blocks Received 0 06/14/2025 11:56 AM CDT [facility] Number of Slides 1 06/14/2025 11:56 AM CDT [facility] Number of Control Slides 1 06/14/2025 11:56 AM CDT [facility] Pathology/Cytolo gy 05/16/2025 8:00 AM CDT 05/16/2025 11:32 AM CDT Jose Alejandro Hardwick MD LAB - PATHOLOGY/CYTOLOGY ORDERAB LES Final Result [facility] [address] [phone] * PATHOLOGY TISSUE (05/14/2025 9:52 AM CDT) Case Report Surgical Pathology Report Case: [id number] Authorizing Provider: Jose Alejandro Hardwick MD Collected: 05/14/2025 09:52 AM Ordering Location: [facility] Physician [facility] - Received: 05/15/2025 04:36 PM Pathology Lab Pathologist: Maliha Jean Baptiste MD Specimen: Lymph Node Biopsy 05/17/2025 10:20 AM CDT [facility] Final Diagnosis Lymph node, right inguinal, needle core biopsy: - Large B-cell lymphoma - See description 05/17/2025 10:20 AM CDT [facility] at 1020 CDT Microscopic Description [...] 202; 142 (Supplement 1): 1744. doi: https://doi.org/10.11 82/pceow-4504-037761 05/17/2025 10:20 AM [facility] Clinical History 74 year old man with right groin pain and swelling. 05/17/2025 10:20 AM [facility] Materials Received Received are 9 slides and 1 block labeled [id number] along with a copy of the outside pathology report. The materials [place] [address]. All original materials are returned to the referring institution, along with a copy of our final report. 05/17/2025 10:20 AM [facility] Pathologist Location at [facility] 05/17/2025 10:20 AM [facility] Disclaimer The performance characteristics of all immunohistochemical and indirect immunofluorescence stains (if any) cited in this report were determined by the Histopathology Laboratory of [facility]. Some of these tests were developed [...] the attending (teaching) pathologist. 05/17/2025 10:20 AM [facility] Embedded Images 05/17/2025 10:20 AM CDT [facility] Pathology/Cytolo gy BIOPSY OF LYMPH NODE / Unknown 05/14/2025 9:52 AM CDT 05/15/2025 4:36 PM CDT Jose Alejandro Hardwick MD LAB - PATHOLOGY/CYTOLOGY ORDERAB LES Final Result [facility] [address] [phone] * FLOW CYTOMETRY TISSUE PANEL (05/14/2025 9:52 AM CDT) Case Report Flow Cytometry Case: [id number] Authorizing Provider: Jose lAejandro Hardwick MD Collected: 05/14/2025 09:52 AM Ordering Location: [facility] - Received: 05/15/2025 01:37 PM Pathology Lab Pathologist: Maliha Jean Baptiste MD Specimen: Lymph Node, INGUINAL 05/15/2025 4:42 PM CDT [facility] Final Diagnosis Lymph node, right inguinal, flow cytometric immunophenotypic analysis: - No evidence of non-Hodgkin lymphoma - See interpretation 05/15/2025 4:42 PM CDT [facility] at 1642 CDT Flow Cytometry Interpretation Viability: 84% B-cells: polytypic, kappa:lambda ratio 1.5:1 T-cells: no immunophenotypic aberrancy detected CD4:CD8 ratio 3.4:1 A cytospin prepared from the flow cytometry specimen has been reviewed for senior quality assurance specialist purposes. 05/15/2025 4:42 PM CDT [facility] Flow Cytometry Results Differential Result Comment Flow Cell Count /uL 3,100 Total Viability % 84.0 Lymphocytes % 91 Dim CD45 Region % 1 Monocytes % 0 Granulocytes % 7 05/15/2025 4:42 PM CDT [facility] Reason for test Other intra-abdominal and pelvic swelling, mass and lump 05/15/2025 4:42 PM CDT [facility] Client Specimen ID # [id number] 05/15/2025 4:42 PM CDT [facility] Number of markers 16 were performed. A-2 Flow CD10 A-4 Flow CD20 A-5 Flow CD23 A-10 Flow CD2 A-11 Flow CD3 A-12 Flow CD4 A-16 Flow CD1a A-3 Flow CD19 A-6 Flow CD34 A-7 Flow CD45 A-13 Flow CD5 A-14 Flow CD7 A-15 Flow CD8 A-17 Flow CD30 A-8 [place]+CD19+ A-9 Lambda+CD19+ 05/15/2025 4:42 PM CDT [facility] Pathologist Location at [facility] 05/15/2025 4:42 PM CDT [facility] Disclaimer Test performed at [facility], [address] [place] [address], [address]. *The established laboratory minimum viability is 70%. [...] complexity clinical testing. 05/15/2025 4:42 PM CDT [facility] Embedded Images 4:42 PM CDT [facility] Pathology/Cytolo gy ENTIRE LYMPH NODE / Unknown 05/14/2025 9:52 AM CDT 05/15/2025 1:37 PM CDT Jose Alejandro Hardwick MD LAB - PATHOLOGY/CYTOLOGY ORDERAB LES Final Result [facility] [address] [place] [address]. [place] [address], [facility] [phone] from Last 3 Months Insurance [employer] SELF PAY NO INSURANCE Member Subscriber Plan / Payer (Ef fective for All Dates) Name:Anne Palacio Member ID:Not on file Relation to Subscriber:Not on file Name:ANNE PALACIO Subscriber ID:Not on file (Home) Address: [address] [place] [id number] Payer ID:Not on file Group ID:Not on file Type:Self Pay Address: [place], [place] Care Teams Freight Breaker Relationship Specialty Start Date End Date eFlipe Bae MD [address] [place] [address] PCP - General 11/22/22
--- OUTSIDE RECORDS SUMMARY | 2025-06-21 02:44 | XMS_ITS | Encounter Summary ---
Author Organization [facility] Address [address] [place] [address] Care Team Providers Care Manager Payroll Name Role Phone Felipe Bae MD Primary Care Provider [phone] Encounter Details Date Type Department Care Team (Late st Contact Info) Description 05/16/2025 Lab Requisition [facility] - Pathology Lab [address] [place] [address] Jose Alejandro Hardwick MD [address] [address] Illness, unspecified Social History Tobacco Use Types Packs/Day Years Used Date Smoking Tobacco: Never Assessed Sex and Gender Information Value Date Recorded Sex Assigned at Not on file 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 Gender Identity Not on file Sexual Orientation Not on file documented as of this encounter Plan of Treatment Not on file documented as of this encounter Procedures Procedure Name Priority Date/Time Associated Diagnosis Comments SLIDE PREP HISTOLOGY Routine 05/16/2025 8:00 AM CDT Illness, unspecified documented in this encounter Results * SLIDE PREP HISTOLOGY (05/16/2025 8:00 AM CDT) Client Specimen ID # [id number] 06/14/2025 11:56 AM CDT [facility] Number of Blocks Received 0 06/14/2025 11:56 AM CDT [facility] Number of Slides 1 06/14/2025 11:56 AM CDT [facility] Number of Control Slides 1 06/14/2025 11:56 AM CDT [facility] Pathology/Cytolo gy 05/16/2025 8:00 AM CDT 05/16/2025 11:32 AM CDT us Jose Alejandro Hardwick MD LAB - PATHOLOGY/CYTOLOGY ORDERAB LES Final Result Performing Organization Address City/State/[facility] Co de Phone Number [facility] [address] [phone] documented in this encounter Visit Diagnoses Diagnosis Illness, unspecified documented in this encounter Care Teams Manager Payroll Relationship Specialty Start Date End Date Felipe Bae MD [address] [place] [address] PCP - General 11/22/22 documented as of this encounter
[2025-06-21 06:25] VITALS: BP 173/73; PULSE 62; RESP 18; TEMP 36.6; O2SAT 100
[2025-06-21] MEDS: LACTATED RINGERS 1,000 ML 30 ML IV CONT (06:45)
--- NOTE | 2025-06-21 07:02 | P.PNAN_ITS ---
Anes - Initial Pre Proc Eval Procedure: Operation Date: 06/21/25 07:30 Proposed Procedures p Insertion Isabel Cath - Zeus Major MD Date/Time: 06/21/25 07:02 Surgeon: Zeus Major MD Pre Op Diagnosis: diffuse large b-cell CA lymphoma of ing region Patient Data Age: 74 Gender: M Height: 1.73 m Weight: 83.95 kg Allergies Allergy/AdvReac Type Severity Reaction Status Date / Time Penicillins Allergy Intermediate Hives Verified 06/17/25 13:49 Home Medications ?Medication ?Instructions ?Recorded ?Confirmed ?Type aspirin 81 mg tablet,delayed 81 mg PO DAILY 10/18/19 1 History release ascorbic acid (vitamin C) 500 mg 500 mg PO DAILY 01/0806/17/25 History capsule,extended release cholecalciferol (vitamin D3) 50 50 mcg PO DAILY 06/17/25 History mcg (2,000 unit) capsule doqcnxkmvzbh-wgc-sbvvm acid-vit 1 tablet PO DAILY 12/1206/17/25 History K-lycop 400 mcg-20 mcg-370 mcg tablet (Men's 50 Plus Daily Formula) triamcinolone acetonide 55 mcg 1 spray intranasal KOFI Y 01/09/24 06/17/25 Histo ry nasal spray aerosol (Nasacort) artifi.tears(hypromellose)(PF) 1.7 1 drp EACH EYE KOFI Y PRN Dry Eyes 06/25/24 06/17/25 History % eye drops with applicator testosterone undecanoate 158 mg 158 mg PO DAILY 06/17/25 History capsule (Jatenzo) simvastatin 40 mg tablet 40 mg PO DAILY #90 tabs 03/1206/17/25 Rx lisinopril 40 mg tablet 40 mg PO DAILY #90 tabs 08/0 12/0406/17/25 Rx diclofenac potassium 50 mg tablet 50 mg PO TID PRN elicia n #10 tabs 05/14/25 06/17/25 Rx hydrochlorothiazide 12.5 mg capsule 12.5 mg PO QAM 30 days #30 caps 05/14/25 06/17/25 Rx oxycodone 10 mg tablet 10 mg PO Q6H PRN pain #10 ta bs 05/14/25 06/17/25 Rx Patient hx anesthesia problems: none Family hx anesthesia problems: none Results Review: All pre-operative results and documents have been reviewed as part of the pre- operative evaluation. 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 Lower extremity edema Hospital discharge follow-up Bradycardia Respiratory crackles at both lung bases Tonsillectomy planned Basal cell carcinoma leg Pigmented malignant lesion of skin BMI 32.0-32.9,adult Subcutaneous mass Screening for thyroid disorder Screening for prostate cancer Screening for diabetes mellitus Potassium (K) excess Elevated bilirubin Changing skin lesion Atelectasis of both lungs Acute non-recurrent maxillary sinusitis BMI 30.0-30.9,adult Family History Family History Father Dementia Mother Diabetes mellitus Morbid obesity Rheumatoid arthritis Heart disease Hypertension Sibling Heart disease Other Family history of arthritis Family history of congestive heart failure Social History Social History Smoking packs per day: 1 Smoking cigarettes per day: 20.0 Years smoked: 20 Smoking pack-years: 20.00 Smoking status: Former smoker Tobacco type: cigarettes Second hand tobacco smoke exposure: No Smoking end date: 09/12/84 Alcohol intake: never Drinks per week: 1 Alcohol use details: beer Substance use: never Substance use type: marijuana Do You Feel Safe in your Home?: Yes Lack of Transportation: No Lack of Food: Never True Current Housing: I Have Housing Concerned About Future Housing: No Difficulty Paying Gas/Electric Bills: No Difficulty Paying for Meds: No Currently Unemployed: No Education: Bachelor's Degree Difficulty w/ Childcare or Family Care: No Living arrangements: with family Occupation/Education: occupation 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[employer] Gender identity (if verbalized by the patient): Male Sexual Orientation (if Verbalized by the Patient): Straight or Heterosexual Spiritual care concerns: No Agree to blood products: Yes Anes - Eval Final PreProcedure Day of Procedure 06/21/25 07:02 Patient weight: overweight Heart: regular rate and rhythm Lungs: clear to auscultation Airway: Mallampati scale class II Neurological: alert and oriented Last oral intake: >/= 8 hours ASA classification: III Emergent: no Anesthetic plan: proceed Anesthesia type and monitoring: general GIVS and standard monitoring Results Review: All pre-operative results and documents have been reviewed as part of the pre- operative evaluation. Informed Consent: The patient's anesthetic plan and its attendant risks and benefits were discussed with the patient/family/POA. Questions were solicited and answers provided to the satisfaction of the patient/family/POA.
--- NOTE | 2025-06-21 07:28 | PM.IMHP ---
H&P: HPI History of Present Illness Date/Time: 06/21/25 07:28 Chief Complaint: Large B-cell lymphoma Narrative: Pt recently had right groin LN bx and found to have B-cell lymphoma. He has never had central line or broken clavicle. He is to start chemo tx soon and needs a portacatheter placement. Review of Systems Review of Systems: The remainder of the review of systems to include constitutional, HEENT, cardiovascular, respiratory, GI, , integumentary, musculoskeletal, endocrine, immunologic, hematologic, psychiatric, and neurologic are all negative except for which is mentioned above in the HPI. 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 Lower extremity edema Hospital discharge follow-up Bradycardia Respiratory crackles at both lung bases Tonsillectomy planned Basal cell carcinoma leg Pigmented malignant lesion of skin BMI 32.0-32.9,adult Subcutaneous mass Screening for thyroid disorder Screening for prostate cancer Screening for diabetes mellitus Potassium (K) excess Elevated bilirubin Changing skin lesion Atelectasis of both lungs Acute non-recurrent maxillary sinusitis BMI 30.0-30.9,adult Family History Family History Father Dementia Mother Diabetes mellitus Morbid obesity Rheumatoid arthritis Heart disease Hypertension Sibling Heart disease Other Family history of arthritis Family history of congestive heart failure Social History Social History Smoking packs per day: 1 Smoking cigarettes per day: 20.0 Years smoked: 20 Smoking pack-years: 20.00 Smoking status: Former smoker Tobacco type: cigarettes Second hand tobacco smoke exposure: No Smoking end date: 09/12/84 Alcohol intake: never Drinks per week: 1 Alcohol use details: beer Substance use: never Substance use type: marijuana Do You Feel Safe in your Home?: Yes Lack of Transportation: No Lack of Food: Never True Current Housing: I Have Housing Concerned About Future Housing: No Difficulty Paying Gas/Electric Bills: No Difficulty Paying for Meds: No Currently Unemployed: No Education: Bachelor's Degree Difficulty w/ Childcare or Family Care: No Living arrangements: with family Occupation/Education: occupation Additional occupation/education comments: [employer] Gender identity (if verbalized by the patient): Male Sexual Orientation (if Verbalized by the Patient): Straight or Heterosexual Spiritual care concerns: No Agree to blood products: Yes Meds Home Medications and Allergies Home Medications ?Medication ?Instructions ?Recorded ?Confirmed ?Type aspirin 81 mg tablet,delayed 81 mg PO DAILY 10/18/19 06/21/25 History release ascorbic acid (vitamin C) 500 mg 500 mg PO DAILY 01/09/24 06/21/25 History capsule,extended release cholecalciferol (vitamin D3) 50 50 mcg PO DAILY 01/09/24 06/21/25 History mcg (2,000 unit) capsule kknjrsvxecej-tee-nqzem acid-vit 1 tablet PO DAILY 01/09/24 06/21/25 History K-lycop 400 mcg-20 mcg-370 mcg tablet (Men's 50 Plus Daily Formula) triamcinolone acetonide 55 mcg 1 spray intranasal DAILY 01/09/24 06/21/25 History nasal spray aerosol (Nasacort) artifi.tears(hypromellose)(PF) 1.7 1 drp EACH EYE DAILY PRN Dry Eyes 06/25/24 06/17/25 History % eye drops with applicator testosterone undecanoate 158 mg 158 mg PO DAILY 02/28/25 06/21/25 History capsule (Jatenzo) simvastatin 40 mg tablet 40 mg PO DAILY #90 tabs 03/25/25 06/21/25 Rx lisinopril 40 mg tablet 40 mg PO DAILY #90 tabs 04/14/25 06/21/25 Rx diclofenac potassium 50 mg tablet 50 mg PO TID PRN pain #10 tabs 05/14/25 06/17/25 Rx hydrochlorothiazide 12.5 mg capsule 12.5 mg PO QAM 30 days #30 caps 05/14/25 06/21/25 Rx oxycodone 10 mg tablet 10 mg PO Q6H PRN pain #10 tabs 05/14/25 06/17/25 Rx Allergies Allergy/AdvReac Type Severity Reaction Status Date / Time Penicillins Allergy Intermediate Hives Verified 06/21/25 07:13 Exam Const: General: comfortable and no acute distress HENMT: Ears: TM's normal bilaterally Face/Nose/Sinus: Normal nares present Mouth: Yes moist mucous membranes Eyes: General: appearance normal, both eyes and all related structures Sclera: sclerae normal Pupils: Equal, round and reactive pupils present EOM: EOMs intact bilaterally Neck: Neck: supple and no JVD Chest: Other: Clavicles symmetric, no chest wall rash. Resp: Effort & Inspection: normal respiratory effort Auscultation: clear to auscultation bilaterally Cardio: Rate: regular rate Rhythm: regular rhythm GI: GI Palp: Yes Soft to palpation, No Firmness to palpation present (GI), No Tenderness to palpation present (GI), No Guarding due to palpation present (GI) and No Hernia present Skin: General skin exam: normal color and no rashes or lesions noted Neuro: General: gait normal Speech: normal speech Motor exam (neuro): 5/5 motor strength present throughout Sensory Exam: normal sensation Extrem: General: normal to inspection Psych: Mental Status: mental status grossly normal Affect: normal affect Assessment and Plan Assessment and plan (1) Diffuse large B cell lymphoma: Code(s): C83.30 - Diffuse large B-cell lymphoma, unspecified site Status: Acute Assessment and Plan: Will proceed with portacatheter placement today. Risks, benefits, indications, and expected outcomes were discussed in detail with the patient and/or family. They understand and I have answered all other questions. They wished to proceed with surgery as outlined above. Risk of iatrogenic pneumothorax and bleeding needing a blood transfusion discussed.
--- NOTE | 2025-06-21 07:33 | WPDHPUPDATE1 ---
History and Physical Update Update Date/Time: 06/21/25 07:33 History and Physical has been reviewed, including an updated exam of the patient. There are NO changes in the patient's condition. Risks, benefits, and alternatives have been discussed and questions answered. Patient agrees to proceed with procedure.
[2025-06-21] MEDS: ceFAZolin 2 GM in SODIUM CHLORIDE 0.9% IV 50 ML 100 ML IVPB (07:36)
[2025-06-21] MEDS: BUPivacaine HCL 0.5% 10 ML AMP 20 ML INFILTRATE (08:16)
[2025-06-21] MEDS: LIDO 1%/EPINEPHRINE 1:100,000 20 ML VIAL INFILTRATE (08:16)
[2025-06-21] MEDS: LIDO 1%/EPINEPHRINE 1:100,000 20 ML VIAL 35 ML INFILTRATE (08:52)
[2025-06-21 09:21] VITALS: BP 126/58; PULSE 70; RESP 18; O2SAT 100
--- NOTE | 2025-06-21 09:34 | W.PM.PROC2 ---
Procedure Note - Detailed Date of Procedure 06/21/25 Pre-op Diagnosis Large B-cell lymphoma Post-op Diagnosis Same Procedure Performed Placement of left subclavian vein ceferino catheter with intraoperative fluoroscopy Attempted placement right subclavian vein port catheter. Surgeon Zeus Major MD Director Immunology Tova Arambula, STACK MATCHER Anesthesia MAC and Local Indications Patient is a 74-year-old gentleman who recently had a right groin lymph node biopsy for lymphadenopathy. 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 He is to go undergo chemotherapy treatments and presents today for placement ceferino catheter to start of treatment. Findings The patient had an attempt at placing a ceferino catheter via the right subclavian vein. The guidewire would pass into the proximal part of the superior vena cava without pass any further. Eventually the site was abandoned placement was then attempted via the left subclavian vein. Again the guidewire with hang up and not pass into the distal superior vena cava via the left subclavian vein but eventually with fluoroscopic manipulation I was finally able to get the guidewire to pass into the distal superior vena cava via the left subclavian vein. The ceferino catheter was placed via left subclavian vein. Description of Procedure After informed consent was obtained patient brought to the operating room she was placed supine position and IV sedation was administered by anesthesia. The bilateral upper anterior neck and chest was then prepped and draped usual sterile fashion. Time-out was then performed correctly identifying the patient as well as procedure to be performed. He was given perioperative IV antibiotics. I then started by attempting placement of the ceferino catheter at the right subclavian vein. 1% lidocaine mixed with 0.5% Marcaine was injected just below the medial 3rd of the right clavicle. A transverse incision was then made this area the scalpel and dissection was carried down through the subcutaneous tissue electrocautery. Then with the patient placed in the head-down Trendelenburg position I then used a long 18gauge spinal needle to percutaneously cannulate the right subclavian vein on the 1st pass through the incision. There was prompt return of dark venous appearing blood. A guidewire was advanced through the needle and the needle was then removed. Intraoperative fluoroscopy was then used to visualize the tip of the guidewire. The guidewire was noted to be going upwards into the right internal jugular vein on 1st attempt positioning. Under fluoroscopic guidance intraoperatively I pulled back on the guidewire and with manipulation and attempted to pass the guidewire into the superior vena cava. I was unable to get the past downward. At this point I then removed the guidewire from the right subclavian vein. I then attempted cannulation of the right internal jugular vein. I anesthetized the skin between the 2 heads of the right sternocleidomastoid muscle. Then with a long 18gauge spinal needle I then attempted cannulation of the right internal jugular vein with 2 passes. On the 1st pass I was unsuccessful in getting into the vein. The 2nd pass I did get a flash of venous appearing blood but then after the initial flash did not aspirate any further. I attempted 1 more time to cannulate the right internal jugular vein and was unsuccessful. At this point I then abandoned trying to place the catheter via the right upper central veins. I then turned my attention towards the left side. The same local anesthetic mixture was then used to anesthetize the area below the medial 3rd of the left clavicle on the left upper anterior chest wall. Scalp was then used to make a transverse incision in this area and then dissection was carried down through the subcu tissue electrocautery. With the patient head-down Trendelenburg position I then used the long 18gauge spinal needle to cannulate the left subclavian vein on the 2nd pass. Again there was dark venous appearing blood returned and then a guidewire was advanced into the left subclavian vein and it seemed to pass easily to a distance of 25cm at the skin. Needle was then removed and the intraop fluoroscopy was used to visualize the tip of the guidewire. The guidewire did make the turn downward from the left subclavian vein into the proximal superior vena cava. However guidewire would curl and not pass into the distal superior vena cava. Again with intraoperative fluoroscopy manipulation of the guidewire was done and eventually I was finally able to get the guidewire to pass into the distal superior vena cava past the point of partial obstruction. At this point I then created a subcutaneous port pocket utilized electrocautery. A away sheath was advanced over the guide into the left subclavian vein and subsequent down into the superior vena cava. The guidewire and dilator removed leaving the sheath in place. A 9.6 Portuguese single-lumen silastic catheter was advanced through the sheath via the left subclavian vein into the superior vena cava. The sheath was then removed leaving the catheter in place. Intraoperative fluoroscopy was used to visualize the tip of the catheter. The tip of the catheter was in the right atrium and then I pulled back on the catheter externals the chest wall under fluoroscopic guidance until the tip of the catheter was at the junction of the superior vena cava and right atrium. The catheter was then cut to the appropriate length the skin and then attached to the titanium Smart Port. The port was then secured the subcutaneous port pocket utilizing 3-0 Prolene sutures on 3 sides. The port was then accessed through the incision with a Dale needle and aspirated blood easily and was flushed with heparinized saline solution. I then irrigated both upper anterior chest wall incisions with sterile saline solution. Hemostasis was good. We then proceeded to close both upper anterior chest wall incisions with interrupted 3-0 Vicryl sutures in the subcutaneous tissues in 2 layers and then the skin edges were approximated utilizing a running subcuticular 4-0 Monocryl suture. I then accessed the left-sided port with the Dale needle percutaneously and it aspirated blood easily once again. He was then flushed with heparinized saline solution. Lastly the port was accessed and flushed with 5000units of IV heparin. The incisions were then cleaned and skin glue was applied to both incisions. The patient tolerated the procedure well no complications. All sponges, needles, and instrument counts were correct at the end procedure. EBL was _50__cc. The patient was awakened and taken to recovery in stable and satisfactory condition. Postprocedure chest x-ray was obtained. My review of the chest x-ray shows tip of the catheter at the atriocaval junction and guidance of pneumothorax bilateral. Final report to be dictated by radiologist after radiology reading. Implants 9.6 Portuguese silastic catheter attached to the titanium Smart port via left subclavian vein. Estimated Blood Loss 50 Drains No Packing No Pathology None sent Complications No immediate complications Condition Stable Disposition PACU [facility] Billing Surgery - Charge Forward: Surgery Billing
[2025-06-21 09:51] VITALS: BP 148/59; PULSE 54; RESP 16
[2025-06-21 10:19] VITALS: BP 100/74; PULSE 59; RESP 16
== END 2025-06-21 10:33 | disposition home or self-care (01) ==
PROVIDERS: PCP Family Medicine; Visit Provider Surgery
PROC: (CPT 36561; principal; 2025-06-21 07:30)
DX: C83.30 Diffuse large B-cell lymphoma, unspecified site (principal); I10 Essential (primary) hypertension; G47.33 Obstructive sleep apnea (adult) (pediatric); E78.5 Hyperlipidemia, unspecified; R00.1 Bradycardia, unspecified; J98.11 Atelectasis; F12.90 Cannabis use, unspecified, uncomplicated; Z79.82 Long term (current) use of aspirin; Z79.891 Long term (current) use of opiate analgesic; Z87.891 Personal history of nicotine dependence; Z85.828 Personal history of other malignant neoplasm of skin; Z82.49 Family history of ischemic heart disease and other diseases of the circulatory system
CPT/HCPCS: 36561; 77001; J0690; C1788; J1644; J2003; J2004; J2704; J3010; J7030; J7120